=== PATIENT | male | born 1990 | race Caucasian/White ===

== ENCOUNTER 2021-12-30 16:08 | Emergency (ER) | payer SELFPAY ==
[2021-12-30] MEDS ORDERED: DICYCLOMINE HCL 20 MG/2 ML AMP IM ONE (16:22)
[2021-12-30] MEDS ORDERED: ONDANSETRON 4 MG/2 ML VIAL ONE (16:22)
[2021-12-30] MEDS ORDERED: PANTOPRAZOLE 40 MG INJ ONE (16:23)
[2021-12-30 16:26] LABS: Absolute Lymphocytes (CBC) 1.3 K/uL (0.7-4.9); Hematocrit 43.9 % (39.6-49.0); Lymphocytes % 9.6 % (15.3-44.8); MPV 7.8 fL (7.6-11.3); RBC Red Blood Cell Count 5.04 M/uL (4.33-5.43)
[2021-12-30 16:53] LABS: ALT/SGPT 34 U/L (12-78); AST/SGOT 18 U/L (15-37); Albumin 4.2 g/dL (3.4-5.0); Alkaline Phosphatase 75 U/L (45-117); BUN Blood Urea Nitrogen 20 mg/dL (7-18); Bicarbonate 29 mmol/L (21-32); Bilirubin Direct 0.1 mg/dL (0-0.2); Bilirubin Total 0.4 mg/dL (0.2-1.0); Glucose Level 124 mg/dL (74-106); Lipase 96 U/L (73-393); Potassium 3.2 mmol/L (3.5-5.1); Protein, Total 7.5 g/dL (6.4-8.2); Sodium Level 139 mmol/L (136-145)
[2021-12-30] MEDS ORDERED: MAGNES/ALUMIN/SIMET 30ML UCUP ONE (16:56)
[2021-12-30] MEDS ORDERED: LIDOCAINE VISCOUS 2% SOLN 15 ML UDC ONE (16:57)
[2021-12-30] MEDS ORDERED: FENTANYL CITR 100 MCG/2 ML ONE (17:53)
[2021-12-30] MEDS ORDERED: NA CHLORIDE 0.9% 1,000 ML ONE (17:53)
[2021-12-30] MEDS ORDERED: KCL 20 MEQ/100 mL IVPB 100 ML IV ONE (17:53)
--- NOTE | 2021-12-30 18:34 | RAD REPORT ---
EXAM DESCRIPTION: CTAbdomen Pelvis W Contrast - 12/30/2021 6:24 pm CLINICAL HISTORY: ABD PAIN COMPARISON: Abdomen Pelvis W Contrast dated 05/04/2017; CT ABD PELVIS W CONTRAST dated 06/16/2013; C T ABD PELVIS W CONTRAST dated 01/24/2013 TECHNIQUE: CT of the abdomen and pelvis was performed. All CT scans are performed using dose optimization technique as appropriate and may include automated exposure control or mA/KV adjustment according to patient size. FINDINGS: Lower chest: No acute abnormality. Liver: Nonspecific periportal edema. Biliary: Cholecystectomy. Stomach: No significant focal abnormality. Duodenum: No significant focal abnormality. Pancreas: No significant abnormality. Spleen: No significant abnormality. Adrenal: No suspicious lesions. Kidney/ureter: No hydronephrosis. No renal calculi. Too small to characterize and/or benign appearing renal lesions are noted. Retroperitoneum: No retroperitoneal adenopathy. Vascular: No aneurysm. Bowel: No significant focal abnormality. Normal appendix Peritoneum: No ascites or free air. Bladder: Grossly unremarkable. Reproductive: No adnexal masses. Bones: No acute fracture. Other: n/a IMPRESSION: No acute intra-abdominal or pelvic finding. Normal appendix .
[2021-12-30] MEDS ORDERED: KETOROLAC 30 MG/ML INJ ONE (18:38)
--- NOTE | 2021-12-30 18:39 | EDPHYS ---
Physician Documentation [facility] Name: Roni Cameron Age: 31 yrs Sex: Male : 1990 Arrival Date: 12/30/2021 Time: 16:10 Bed 8 Private MD: ED Physician Chan Damon HPI: 12/30 17:06 This 31 yrs old Male presents to ER via EMS with complaints of Abdominal Pain. jr8 17:06 The patient presents with abdominal pain in the epigastric area. Onset: The jr8 symptoms/episode began/occurred acutely, today. The symptoms do not radiate. Associated signs and symptoms: Pertinent positives: nausea and vomiting. The symptoms are described as stabbing. Modifying factors: The symptoms are alleviated by nothing, the symptoms are aggravated by nothing. Severity of pain: At its worst the pain was moderate in the emergency department the pain is unchanged. The patient has experienced similar episodes in the past, a few times. The patient has not recently seen a physician. Stated that he use to have this when he smoked synthetic. Also with history of gastritis. Currently on no meds . Historical: - Allergies: 16:19 Ceclor; ke1 - PMHx: 16:19 Bipolar disorder; GERD; gastritis; Schizophrenia; ke1 - Immunization history:: Client reports having NOT received the Covid vaccine. - Social history:: Smoking status: Patient reports the use of cigarette tobacco products. ROS: 17:06 Eyes: Negative for injury, pain, redness, and discharge, ENT: Negative for injury, jr8 pain, and discharge, Neck: Negative for injury, pain, and swelling, Cardiovascular: Negative for chest pain, palpitations, and edema, Respiratory: Negative for shortness of breath, cough, wheezing, and pleuritic chest pain, Back: Negative for injury and pain, MS/Extremity: Negative for injury and deformity, Skin: Negative for injury, rash, and discoloration, Neuro: Negative for headache, weakness, numbness, tingling, and seizure. 17:06 Abdomen/GI: Positive for abdominal pain, nausea and vomiting, Negative for diarrhea, hematemesis, rectal bleeding. Exam: 17:06 Cardiovascular: Regular rate and rhythm with a normal S1 and S2. No gallops, murmurs, jr8 or rubs. Normal PMI, no JVD. No pulse deficits. Respiratory: Lungs have equal breath sounds bilaterally, clear to auscultation and percussion. No rales, rhonchi or wheezes noted. No increased work of breathing, no retractions or nasal flaring. Back: No spinal tenderness. No costovertebral tenderness. Full range of motion. Skin: Warm, dry with normal turgor. Normal color with no rashes, no lesions, and no evidence of cellulitis. MS/ Extremity: Pulses equal, no cyanosis. Neurovascular intact. Full, normal range of motion. Neuro: Awake and alert, GCS 15, oriented to person, place, time, and situation. Cranial nerves II-XII grossly intact. Motor strength 5/5 in all extremities. Sensory grossly intact. 17:06 Constitutional: The patient appears alert, awake, anxious. 17:06 Abdomen/GI: Inspection: abdomen appears normal, Bowel sounds: active, all quadrants, Palpation: soft, in all quadrants, moderate abdominal tenderness, in the epigastric area, mass, is not appreciated, rebound tenderness, is not appreciated, voluntary guarding, is not appreciated, involuntary guarding, is not appreciated, no appreciated organomegaly, Indicators: McBurney's point is not tender, Meza's sign is negative, Rovsing's sign is negative. Vital Signs: 16:11 BP 125 / 73; Pulse 51; Resp 19; Temp 97.5; Pulse Ox 99% on R/A; Weight 72.57 kg; Height ke1 5 ft. 99 in. (403.86 cm); Pain 9/10; 17:30 BP 115 / 84; Pulse 45; Resp 12; Pulse Ox 100% ; vg1 16:11 Body Mass Index 4.45 (72.57 kg, 403.86 cm) ke1 MDM: 16:10 Patient medically screened. [email or web address] 17:06 Data reviewed: vital signs, nurses notes, lab test result(s), and as a result, I will [facility] [email or web address] discharge patient. Data interpreted: Pulse oximetry: on room air is 99 %. Interpretation: normal. 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 17:32 ED course: Patient still complaining of significant upper abdominal pain. Will CT his jr8 abdomen to ensure no surgical emergency is present . 18:01 Response to treatment: the patient's symptoms have mildly improved after treatment. ED jr8 course: Discussed with patient that he needs to f/u with gastroenterology for further evaluation . 12/30 16:11 Order name: Basic Metabolic Panel; Complete Time: 16:56 8 12/30 16:11 Order name: CBC with Diff; Complete Time: 16:29 8 12/30 16:11 Order name: Hepatic Function; Complete Time: 16:56 8 12/30 16:11 Order name: Lipase; Complete Time: 16:56 8 12/30 17:32 Order name: CT Abd/Pelvis - IV Contrast Only; Complete Time: 18:37 8 12/30 16:11 Order name: IV Saline Lock; Complete Time: 16:17 8 12/30 16:11 Order name: Labs collected and sent; Complete Time: 16:17 jr8 Administered Medications: 16:22 Drug: Zofran (Ondansetron) 4 mg Route: IVP; Site: right antecubital; vg1 17:30 Follow up: Response: No adverse reaction; Marked relief of symptoms vg1 16:24 Drug: ProTONIX (pantoprazole) 40 mg Route: IVP; Site: right antecubital; vg1 17:30 Follow up: Response: No adverse reaction; No change in condition vg1 16:29 Drug: Dicyclomine 20 mg Route: IM; Site: left deltoid; ke1 17:30 Follow up: Response: No adverse reaction; No change in condition vg1 16:59 Drug: GI Cocktail without - (Maalox Suspension 30 ml, Lidocaine Liquid 2 % 15 ke1 ml) Route: PO; 17:58 Follow up: Response: No adverse reaction; No change in condition vg1 17:45 Drug: NS 0.9% 1000 ml Route: IV; Rate: 1000 ml; Site: right antecubital; vg1 17:46 Drug: fentaNYL (PF) 50 mcg Route: IVP; Site: right antecubital; vg1 17:48 Drug: Potassium Chloride 20 mEq Route: IV; Rate: calculated rate; Site: right vg1 antecubital; 18:39 Drug: Ketorolac 15 mg Route: IVP; Site: right antecubital; ke1 Disposition Summary: 12/30/21 18:38 Discharge Ordered Location: Home kb Problem: new kb Symptoms: have improved kb Condition: Stable kb Diagnosis - Epigastric pain kb - Acute gastritis kb Followup: jr8 - With: - When: 2 - 3 days - Reason: Recheck today's complaints, Continuance of care, Re-evaluation by your physician Discharge Instructions: - Discharge Summary Sheet jr8 - Abdominal Pain, Adult jr8 - Gastritis, Adult jr8 - Peptic Ulcer jr8 Forms: - Medication Reconciliation Form kb - Thank You Letter kb - Antibiotic Education kb - Prescription Opioid Use kb Prescriptions: - omeprazole 40 mg Oral capsule,delayed release(DR/EC) - take 1 capsule by ORAL route once daily before a meal; 30 capsule; Refills: 0, jr8 Product Selection Permitted Signatures: Dispatcher [employer] Malika Bai, TYRON-C [employer]PA[employer] CARMAN-Cesar Glaser PA PA jr8 Araceli Baldwin RN RN vg1 Aaron Dinh RN RN ke1
--- NOTE | 2021-12-30 18:39 | ER ---
Nurse's Notes [facility] Name: Roni Cameron Age: 31 yrs Sex: Male : 1990 Arrival Date: 12/30/2021 Time: 16:10 Bed 8 Private MD: Diagnosis: Epigastric pain;Acute gastritis Presentation: 12/30 16:11 Chief complaint: Patient states: Abdominal pain N/V reported by patient to EMS , not ke1 very cooperative so EMS couldn't get elaborate report from patient, patient cursing all the way to the hospital. On arrival 125/73 18 99% on RA , bradycardic 51. Coronavirus screen: Vaccine status: Patient reports being unvaccinated. Ebola Screen: No symptoms or risks identified at this time. Initial Sepsis Screen: Does the patient meet any 2 criteria? No. Patient's initial sepsis screen is negative. Does the patient have a suspected source of infection? No. Patient's initial sepsis screen is negative. Risk Assessment: Do you want to hurt yourself or someone else? Patient reports no desire to harm self or others. Onset of symptoms was November 29, 2021. 16:11 Method Of Arrival: EMS: [facility] ke1 16:11 Acuity: EMILY 3 ke1 Triage Assessment: 16:25 General: Appears uncomfortable, Behavior is agitated, fussy, inappropriate for age, ke1 restless. Pain: Complains of pain in abdomen Pain does not radiate. Pain currently is 9 out of 10 on a pain scale. Neuro: Level of Consciousness is awake, alert, Oriented to person, place, time, situation. Cardiovascular: Heart tones S1 S2 Capillary refill < 3 seconds Patient's skin is warm and dry. Pulses are all present. Edema is absent. Respiratory: Airway Breath sounds are clear bilaterally. GI: Abdomen is flat, Abd is soft Abdomen is tender to palpation X 4 quads. : No deficits noted. Derm: No deficits noted. Musculoskeletal: No deficits noted. Historical: - Allergies: 16:19 Ceclor; ke1 - PMHx: 16:19 Bipolar disorder; GERD; gastritis; Schizophrenia; ke1 - Immunization history:: Client reports having NOT received the Covid vaccine. - Social history:: Smoking status: Patient reports the use of cigarette tobacco products. Screenin:31 Abuse screen: Denies threats or abuse. Nutritional screening: No deficits noted. ke1 Tuberculosis screening: No symptoms or risk factors identified. Fall Risk None identified. Assessment: 16:29 Reassessment: see triage note. ke1 17:58 Reassessment: Patient appears in no apparent distress at this time. No changes from vg1 previously documented assessment. Patient and/or family updated on plan of care and expected duration. Pain level reassessed. Patient is alert, oriented x 3, equal unlabored respirations, skin warm/dry/pink. 18:50 Reassessment: Patient appears in no apparent distress at this time. Patient and/or jd3 family updated on plan of care and expected duration. Pain level reassessed. Patient is alert, oriented x 3, equal unlabored respirations, skin warm/dry/pink. Vital Signs: 16:11 BP 125 / 73; Pulse 51; Resp 19; Temp 97.5; Pulse Ox 99% on R/A; Weight 72.57 kg; Height ke1 5 ft. 99 in. (403.86 cm); Pain 9/10; 17:30 BP 115 / 84; Pulse 45; Resp 12; Pulse Ox 100% ; vg1 16:11 Body Mass Index 4.45 (72.57 kg, 403.86 cm) ke1 ED Course: 16:10 Patient arrived in ED. vg1 16:10 Aaron Dinh, OLI is Primary Nurse. ke1 16:10 Cesar Bolivar PA is PHCP. jr8 16:10 Chan Damon MD is Attending Physician. jr8 16:17 Triage completed. ke1 16:32 Arm band placed on right wrist. ke1 18:02 PHCP role handed off by Cesar Bolivar PA kb 18:02 Malika Angela FNP-C is PHCP. kb 18:24 CT Abd/Pelvis - IV Contrast Only In Process Unspecified. EDMS 18:38 Cesar Bolivar PA is PHCP. kb 18:38 Glenn Mccoy MD is Referral Physician. kb 19:05 No provider procedures requiring assistance completed. IV discontinued, intact, jd3 bleeding controlled, No redness/swelling at site. Pressure dressing applied. 19:06 Patient has correct armband on for positive identification. Bed in low position. Call jd3 light in reach. Side rails up X 1. Pulse ox on. NIBP on. Administered Medications: 16:22 Drug: Zofran (Ondansetron) 4 mg Route: IVP; Site: right antecubital; vg1 17:30 Follow up: Response: No adverse reaction; Marked relief of symptoms vg1 16:24 Drug: ProTONIX (pantoprazole) 40 mg Route: IVP; Site: right antecubital; vg1 17:30 Follow up: Response: No adverse reaction; No change in condition vg1 16:29 Drug: Dicyclomine 20 mg Route: IM; Site: left deltoid; ke1 17:30 Follow up: Response: No adverse reaction; No change in condition vg1 16:59 Drug: GI Cocktail without - (Maalox Suspension 30 ml, Lidocaine Liquid 2 % 15 ke1 ml) Route: PO; 17:58 Follow up: Response: No adverse reaction; No change in condition vg1 17:45 Drug: NS 0.9% 1000 ml Route: IV; Rate: 1000 ml; Site: right antecubital; vg1 17:46 Drug: fentaNYL (PF) 50 mcg Route: IVP; Site: right antecubital; vg1 17:48 Drug: Potassium Chloride 20 mEq Route: IV; Rate: calculated rate; Site: right vg1 antecubital; 18:39 Drug: Ketorolac 15 mg Route: IVP; Site: right antecubital; ke1 Outcome: 18:38 Discharge ordered by . kb 19:05 Discharged to home ambulatory. jd3 19:05 Condition: stable 19:05 Discharge instructions given to patient, Instructed on discharge instructions, follow up and referral plans. Demonstrated understanding of instructions, follow-up care. 19:06 Patient left the ED. jd3 Signatures: Dispatcher [employer] EDMS Malika Angela FNP-C FNP-Cesar Glaser PA PA jr8 Arnulfo Mckeon RN RN jd3 Garcia, Victoria, RN RN vg1 Aaron Dinh RN RN ke1
[2021-12-30 19:34] VITALS: TEMP 97.5
[2021-12-30 19:35] VITALS: BP 115/84; O2SAT 100
== END 2021-12-30 19:06 | disposition home or self-care (01) ==
LOC: ER 16:08
DX: K29.00 Acute gastritis without bleeding (principal); Z72.0 Tobacco use; Z88.8 Allergy status to other drugs, medicaments and biological substances
CPT/HCPCS: 36415; 74177; 80048; 80076; 83690; 85025; 96372; 96374; 96375; 99284; C9113; J0500; J2405; J3010; J3480; J7030; Q9967

== ENCOUNTER 2022-03-09 01:45 | Emergency (ER) | payer SELFPAY ==
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
[2022-03-09 02:34] VITALS: BP 131/94; TEMP 98.5; O2SAT 97
== END 2022-03-09 02:27 | disposition home or self-care (01) ==
LOC: ER 01:45
DX: M26.601 Right temporomandibular joint disorder, unspecified (principal); R09.81 Nasal congestion; R06.02 Shortness of breath; L03.116 Cellulitis of left lower limb; F20.9 Schizophrenia, unspecified; Z88.1 Allergy status to other antibiotic agents
CPT/HCPCS: 99281

== ENCOUNTER 2022-09-05 09:32 | Emergency (ER) | payer SELFPAY ==
[2022-09-05] MEDS ORDERED: MAGNES/ALUMIN/SIMET 30ML UCUP ONE (09:54)
[2022-09-05] MEDS ORDERED: ONDANSETRON 4 MG/2 ML VIAL ONE (09:54)
[2022-09-05] MEDS ORDERED: NA CHLORIDE 0.9% 1,000 ML ONE (09:55)
[2022-09-05] MEDS ORDERED: FAMOTIDINE 20 MG/2 ML VIAL IV ONE (09:55)
[2022-09-05] MEDS ORDERED: LIDOCAINE VISCOUS 2% SOLN 15 ML UDC ONE (09:55)
[2022-09-05 10:12] LABS: Absolute Lymphocytes (CBC) 1.4 K/uL (0.7-4.9); Hematocrit 50.4 % (39.6-49.0); Lymphocytes % 6.9 % (15.3-44.8); MCV 87.7 fL (80-100); MPV 7.6 fL (7.6-11.3); RBC Red Blood Cell Count 5.75 M/uL (4.33-5.43)
[2022-09-05 10:22] LABS: Albumin 4.8 g/dL (3.4-5.0); Potassium 3.9 mmol/L (3.5-5.1); Protein, Total 8.8 g/dL (6.4-8.2)
--- NOTE | 2022-09-05 11:09 | RAD REPORT ---
EXAM DESCRIPTION: CT - Abdomen Pelvis W Contrast - 09/05/2022 10:55 am CLINICAL HISTORY: abd pain COMPARISON: Abdomen Pelvis W Contrast dated 12/30/2021 TECHNIQUE: Biphasic, helical CT imaging of the abdomen and pelvis was performed following 100 ml non -ionic IV contrast. Oral contrast: No. All CT scans are performed using dose optimization technique as appropriate and may include automated exposure control or mA/KV adjustment according to patient size. FINDINGS: No suspicious findings in the lung bases. The liver, spleen, and pancreas show no suspicious findings. Gallbladder is absent. No abnormal bilia ry tree dilatation. Symmetric renal function is seen with no hydronephrosis or suspicious renal mass. No pyelonephritis o r acute parenchymal process. No bladder abnormalities. No adrenal abnormalities. Distal esophagus shows no wall thickening or edema. No gastric wall thickening, mass or edema identif iable. Gastritis can be occult on CT imaging. A few mildly prominent small bowel loops are present. F luid is seen in the right-side of the colon. No colon wall thickening or mass. Hyperdensity within th e sigmoid and rectum is probably ingested medication. Bowel pattern is nonspecific. A nonspecific ent eritis is possible. No free air, free fluid or inflammatory stranding. No hernia, mass or bulky lymphadenopathy. No suspicious bony findings. IMPRESSION: Contrast enhanced CT abdomen and pelvis showing no acute or emergent finding. The bowel pattern is nonspecific. A mild enteritis cannot be excluded.
[2022-09-05 11:13] LABS: Blood Morphology Comment NOT SEEN (NOT SEEN); Platelet Estimate ADEQ; White Blood Cell Scan OK (OK)
[2022-09-05] MEDS ORDERED: DICYCLOMINE HCL 20 MG/2 ML AMP IM ONE (11:22)
[2022-09-05] MEDS ORDERED: PROMETHAZINE INJ 25 MG/ML AMP ONE (11:22)
--- NOTE | 2022-09-05 12:25 | EDPHYS ---
Physician Documentation [facility] Name: Roni Cameron Age: 32 yrs Sex: Male : 1990 Arrival Date: 09/05/2022 Time: 09:33 Bed 19 Private MD: ED Physician Edward Fair HPI: 09/05 09:57 This 32 yrs old Male presents to ER via Ambulatory with complaints of Abdominal Pain. kb 09:57 The patient presents with abdominal pain in the upper abdomen. Onset: The kb symptoms/episode began/occurred yesterday. The symptoms do not radiate. Associated signs and symptoms: Pertinent positives: nausea, vomiting, and diarrhea, Pertinent negatives: fever. The symptoms are described as burning. Modifying factors: The symptoms are alleviated by nothing, the symptoms are aggravated by nothing. Severity of pain: At its worst the pain was moderate in the emergency department the pain is unchanged. The patient has experienced similar episodes in the past, a few times. The patient has been recently seen by a physician: the ER physician, out of Town, yesterday. Pt reports n/v/d and upper abd pain since yesterday. Was seen at [place] [facility] and diagnosed with gastritis after normal CT and labs. States symptoms have continued. Pt has had this in the past. Pt states he smokes marijuana daily. Historical: - Allergies: 09:45 Ceclor; aa5 - Home Meds: 09:45 Geodon Oral [Active]; Seroquel Oral [Active]; aa5 - PMHx: 09:45 Bipolar disorder; gastritis; GERD; PTSD; Schizophrenia; aa5 - PSHx: 09:45 Cholecystectomy; aa5 - Immunization history:: Adult Immunizations unknown. - Social history:: Patient uses street drugs, marijuana. ROS: 09:59 Constitutional: Negative for fever, chills, and weight loss. kb 09:59 Abdomen/GI: Positive for abdominal pain, nausea, vomiting, and diarrhea. 09:59 All other systems are negative. Exam: 09:59 Head/Face: Normocephalic, atraumatic. ENT: Moist Mucous membranes Cardiovascular: kb Regular rate and rhythm with a normal S1 and S2. No gallops, murmurs, or rubs. No pulse deficits. Respiratory: Respirations even and unlabored. No increased work of breathing. Talking in full sentences Abdomen/GI: Soft, non-tender. No distention Skin: Warm, dry with normal turgor. Normal color. MS/ Extremity: Pulses equal, no cyanosis. Neurovascular intact. Full, normal range of motion. Neuro: Awake and alert, GCS 15, oriented to person, place, time, and situation. Moves all extremities. Normal gait. Psych: Awake, alert, with orientation to person, place and time. Behavior, mood, and affect are within normal limits. 09:59 Constitutional: The patient appears alert, awake, uncomfortable. Vital Signs: 09:42 BP 162 / 107; Pulse 60; Resp 16 S; Temp 97.6(O); Pulse Ox 99% on R/A; Weight 72.57 kg aa5 (R); Height 5 ft. 8 in. (172.72 cm) (R); Pain 10/10; 10:05 BP 153 / 81; Pulse 74; Resp 22; Pulse Ox 100% on R/A; Pain 10/10; mb8 10:26 BP 153 / 81; Pulse 53; Resp 16; Pulse Ox 98% on R/A; Pain 5/10; mb8 11:34 BP 117 / 72; Pulse 70; Resp 20; Pulse Ox 99% on R/A; Pain 8/10; mb8 09:42 Body Mass Index 24.33 (72.57 kg, 172.72 cm) aa5 10:26 Patient resting at this time mb8 MDM: 09:42 Patient medically screened. kb 09:57 Data reviewed: vital signs, nurses notes. Data interpreted: Pulse oximetry: on room air kb is 99 %. Interpretation: normal. 11:47 Counseling: I had a detailed discussion with the patient and/or guardian regarding: the kb historical points, exam findings, and any diagnostic results supporting the discharge/admit diagnosis, lab results, radiology results, the need for outpatient follow up, a video and sound recorder, to return to the emergency department if symptoms worsen or persist or if there are any questions or concerns that arise at home. 09/05 09:43 Order name: CBC with Diff; Complete Time: 11:17 kb 09/05 09:43 Order name: CMP; Complete Time: 10:25 kb 09/05 09:43 Order name: Lipase; Complete Time: 10:25 kb 09/05 10:30 Order name: CT Abd/Pelvis - IV Contrast Only; Complete Time: 11:10 kb 09/05 11:14 Order name: CBC Smear Scan; Complete Time: 11:17 EDMS 09/05 09:43 Order name: IV Saline Lock; Complete Time: 09:55 kb 09/05 09:43 Order name: Labs collected and sent; Complete Time: 09:55 kb 09/05 11:12 Order name: PO challenge; Complete Time: 11:32 kb Administered Medications: 09:55 Drug: NS 0.9% 1000 ml Route: IV; Rate: 1 bolus; Site: left antecubital; mb8 10:33 Follow up: Response: No adverse reaction; IV Status: Completed infusion mb8 09:55 Drug: Pepcid (famotidine) 20 mg Route: IVP; Site: left antecubital; mb8 10:33 Follow up: Response: No adverse reaction; Pain is decreased mb8 09:58 Drug: Zofran (Ondansetron) 4 mg Route: IVP; Site: left antecubital; mb8 10:34 Follow up: Response: No adverse reaction; Nausea is decreased mb8 09:59 Drug: GI Cocktail without - (Maalox Suspension 30 ml, Lidocaine Liquid 2 % 15 mb8 ml) Route: PO; 10:33 Follow up: Response: No adverse reaction; Pain is decreased mb8 11:26 Drug: Phenergan (promethazine) 25 mg Route: IM; Site: left deltoid; mb8 12:29 Follow up: Response: Nausea is decreased mb8 11:26 Drug: Bentyl (dicyclomine) 20 mg Route: PO; mb8 12:29 Follow up: Response: Pain is decreased mb8 Disposition: 09:59 Co-signature as Attending Physician, Edward PEDERSEN was immediately available on-site ms3 in the Emergency Department for consultation in the care of the patient. Disposition Summary: 09/05/22 12:23 Discharge Ordered Location: Home Condition: Stable kb Diagnosis - Nausea with vomiting, unspecified kb - Upper abdominal pain, unspecified kb Followup: kb - With: Emergency Department - When: As needed - Reason: Worsening of condition Followup: kb - With: Private Physician - When: 2 - 3 days - Reason: Recheck today's complaints, Continuance of care, Re-evaluation by your physician Discharge Instructions: - Discharge Summary Sheet kb - Gastritis, Adult, [id number] kb Forms: - Medication Reconciliation Form kb - Thank You Letter kb - Antibiotic Education kb - Prescription Opioid Use kb Prescriptions: - Zofran 4 mg Oral Tablet - take 1 tablet by ORAL route every 6 hours As needed; 20 tablet; Refills: 0, kb Product Selection Permitted - dicyclomine 20 mg Oral Tablet - take 1 tablet by ORAL route 4 times per day As needed; 20 tablet; Refills: 0, kb Product Selection Permitted Signatures: Dispatcher [employer] EDMS Malika Angela, DRAFTER ASSISTANT-C DRAFTER ASSISTANT-Brianb Jeannie Cedeno, RN RN aa5 Edward Fair DO DO ms3 Carlyle Bae, RN RN mb8
--- NOTE | 2022-09-05 12:25 | ER ---
Nurse's Notes [facility] Name: Roni Cameron Age: 32 yrs Sex: Male : 1990 Arrival Date: 09/05/2022 Time: 09:33 Bed 19 Private MD: Diagnosis: Nausea with vomiting, unspecified;Upper abdominal pain, unspecified Presentation: 09/05 09:42 Chief complaint: Patient states: abd pain, nausea, vomiting, diarrhea since yesterday. [facility] Pt reports being seen at [facility] yesterday. Pt states "I got acid reflux and gastritis since yesterday". 09:42 Coronavirus screen: diarrhea, nausea, vomiting. Ebola Screen: Patient denies travel to [facility] an Ebola-affected area in the 21 days before illness onset. Initial Sepsis Screen: Does the patient meet any 2 criteria? No. Patient's initial sepsis screen is negative. Does the patient have a suspected source of infection? No. Patient's initial sepsis screen is negative. Risk Assessment: Do you want to hurt yourself or someone else? Patient reports no desire to harm self or others. Onset of symptoms was September 04, 2022. 09:42 Method Of Arrival: Ambulatory [facility] 09:42 Acuity: EMILY 3 aa5 Triage Assessment: 09:50 General: Appears uncomfortable, Behavior is cooperative, restless. mb8 Historical: - Allergies: 09:45 Ceclor; aa5 - Home Meds: 09:45 Geodon Oral [Active]; Seroquel Oral [Active]; aa5 - PMHx: 09:45 Bipolar disorder; gastritis; GERD; PTSD; Schizophrenia; aa5 - PSHx: 09:45 Cholecystectomy; aa5 - Immunization history:: Adult Immunizations unknown. - Social history:: Patient uses street drugs, marijuana. Screenin:02 Abuse screen: Denies threats or abuse. Denies injuries from another. Nutritional mb8 screening: No deficits noted. Tuberculosis screening: No symptoms or risk factors identified. Fall Risk None identified. Assessment: 09:50 Pain: Complains of pain in abdomen Pain does not radiate. Pain currently is 10 out of mb8 10 on a pain scale. Quality of pain is described as burning. GI: Abdomen is flat, non-distended, Bowel sounds present X 4 quads. Abd is soft Patient c/o abdominal pain for several days. Was seen at a different ER and they sent him home with prescriptions. Patient did not get those filled because of not being able to afford the medication. 10:26 Reassessment: Patient and/or family updated on plan of care and expected duration. Pain mb8 level reassessed. Patient sleeping at this time. 12:29 Reassessment: PO challenge with water successful. No vomiting. mb8 Vital Signs: 09:42 BP 162 / 107; Pulse 60; Resp 16 S; Temp 97.6(O); Pulse Ox 99% on R/A; Weight 72.57 kg aa5 (R); Height 5 ft. 8 in. (172.72 cm) (R); Pain 10/10; 10:05 BP 153 / 81; Pulse 74; Resp 22; Pulse Ox 100% on R/A; Pain 10/10; mb8 10:26 BP 153 / 81; Pulse 53; Resp 16; Pulse Ox 98% on R/A; Pain 5/10; mb8 11:34 BP 117 / 72; Pulse 70; Resp 20; Pulse Ox 99% on R/A; Pain 8/10; mb8 09:42 Body Mass Index 24.33 (72.57 kg, 172.72 cm) aa5 10:26 Patient resting at this time mb8 ED Course: 09:33 Patient arrived in ED. as 09:39 Malika Angela FNP-C is PHCP. kb 09:39 Edward Fair DO is Attending Physician. kb 09:41 Arm band placed on Patient placed in an exam room, on a stretcher. aa5 09:47 Triage completed. aa5 09:49 Carlyle Bae, OLI is Primary Nurse. mb8 09:50 Patient has correct armband on for positive identification. Placed in gown. Bed in low mb8 position. Call light in reach. Side rails up X2. Client placed on continuous cardiac and pulse oximetry monitoring. NIBP monitoring applied. 09:55 Inserted saline lock: 20 gauge in left antecubital area, using aseptic technique. Blood mb9 collected. 09:55 CBC with Diff Sent. mb9 09:55 CMP Sent. mb9 09:55 Lipase Sent. mb9 10:03 No provider procedures requiring assistance completed. mb8 10:[address] via wheelchair. mb8 10:57 CT Abd/Pelvis - IV Contrast Only In Process Unspecified. EDMS 10:[address] from [address]. mb8 12:25 IV discontinued, intact, bleeding controlled, No redness/swelling at site. Pressure mb8 dressing applied. Administered Medications: 09:55 Drug: NS 0.9% 1000 ml Route: IV; Rate: 1 bolus; Site: left antecubital; mb8 10:33 Follow up: Response: No adverse reaction; IV Status: Completed infusion mb8 09:55 Drug: Pepcid (famotidine) 20 mg Route: IVP; Site: left antecubital; mb8 10:33 Follow up: Response: No adverse reaction; Pain is decreased mb8 09:58 Drug: Zofran (Ondansetron) 4 mg Route: IVP; Site: left antecubital; mb8 10:34 Follow up: Response: No adverse reaction; Nausea is decreased mb8 09:59 Drug: GI Cocktail without - (Maalox Suspension 30 ml, Lidocaine Liquid 2 % 15 mb8 ml) Route: PO; 10:33 Follow up: Response: No adverse reaction; Pain is decreased mb8 11:26 Drug: Phenergan (promethazine) 25 mg Route: IM; Site: left deltoid; mb8 12:29 Follow up: Response: Nausea is decreased mb8 11:26 Drug: Bentyl (dicyclomine) 20 mg Route: PO; mb8 12:29 Follow up: Response: Pain is decreased mb8 Medication: 10:03 VIS not applicable for this client. mb8 Outcome: 12:23 Discharge ordered by MD. hewitt 12:30 Discharged to home ambulatory. mb8 12:30 Condition: stable 12:30 Discharge instructions given to patient, Instructed on discharge instructions, follow up and referral plans. Demonstrated understanding of instructions, follow-up care, Prescriptions given X 2. 12:31 Patient left the ED. mb8 Signatures: Dispatcher [employer] EDMS Malika Angela, MANJULA ACKERMAN-Michelle Paige Audri RN RN aa5 Carlyle Bae RN RN mb8 Emmie Nielsen RN RN mb9 Corrections: (The following items were deleted from the chart) 10:34 10:26 BP 153 / 81; Pulse 53bpm; Resp 16bpm; Pulse Ox 98% RA; Patient sleeping at this mb8 time; mb8
[2022-09-05 12:36] VITALS: TEMP 97.6
[2022-09-05 12:40] VITALS: BP 117/72; O2SAT 99
== END 2022-09-05 12:31 | disposition home or self-care (01) ==
LOC: ER 09:32
DX: R10.10 Upper abdominal pain, unspecified (principal); R11.2 Nausea with vomiting, unspecified; R19.7 Diarrhea, unspecified; Z88.1 Allergy status to other antibiotic agents
CPT/HCPCS: 36415; 74177; 80053; 83690; 85025; 96361; 96372; 96374; 96375; 99284; J0500; J2405; J2550; J7030; Q9967

== ENCOUNTER 2022-10-11 10:15 | Emergency (ER) | payer SELFPAY ==
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
[2022-10-11] MEDS ORDERED: FLUORESCEIN SODIUM 1 MG/WRAP ONE (10:47)
[2022-10-11] MEDS ORDERED: TETRACAINE HCL 0.5% 4ML OPTH ONE (10:47)
--- NOTE | 2022-10-11 11:35 | ER ---
Nurse's Notes [facility] Name: Roni Cameron Age: 32 yrs Sex: Male : 1990 Arrival Date: 10/11/2022 Time: 10:19 Bed 11 Private MD: Diagnosis: Foreign body in cornea, right eye Presentation: 10/11 10:29 Chief complaint: Patient states: about a week ago was grinding metal and the irritation vg1 has become worse over the week. Denies blurred vision. Coronavirus screen: Vaccine status: Patient reports being unvaccinated. Client denies travel out of the [place] in the last 14 days. Ebola Screen: Patient negative for fever greater than or equal to 101.5 degrees Fahrenheit, and additional compatible Ebola Virus Disease symptoms. Initial Sepsis Screen: Does the patient meet any 2 criteria? No. Patient's initial sepsis screen is negative. Does the patient have a suspected source of infection? No. Patient's initial sepsis screen is negative. Risk Assessment: Do you want to hurt yourself or someone else? Patient reports no desire to harm self or others. Onset of symptoms was October 04, 2022. 10:29 Method Of Arrival: Ambulatory vg1 10:29 Acuity: EMILY 4 vg1 Triage Assessment: 10:31 General: Appears uncomfortable, Behavior is cooperative. Pain: Complains of pain in vg1 right eye Pain currently is 6 out of 10 on a pain scale. EENT: Eyes are tearing on right eye and redness . Historical: - Allergies: 10:31 Ceclor; vg1 - Home Meds: 10:31 Seroquel Oral [Active]; vg1 - PMHx: 10:31 Bipolar disorder; gastritis; GERD; PTSD; Schizophrenia; vg1 - PSHx: 10:31 Cholecystectomy; vg1 - Immunization history:: Client reports having NOT received the Covid vaccine. - Social history:: Smoking status: Patient denies any tobacco usage or history of. Screenin:31 Abuse screen: Denies threats or abuse. Denies injuries from another. Nutritional ld1 screening: No deficits noted. Tuberculosis screening: No symptoms or risk factors identified. Fall Risk None identified. Assessment: 11:31 Reassessment: See triage assessment. ld1 Vital Signs: 10:29 BP 146 / 93; Pulse 90; Resp 15; Temp 98.0; Pulse Ox 98% ; Weight 72.57 kg; Height 5 ft. vg1 9 in. (175.26 cm); Pain 6/10; 11:32 BP 136 / 90; Pulse 86; Resp 15; Pulse Ox 99% on R/A; ld1 10:29 Body Mass Index 23.63 (72.57 kg, 175.26 cm) vg1 ED Course: 10:19 Patient arrived in ED. rg4 10:19 Clive Cruz PA is PHCP. [facility] 10:19 Shahab Levy MD is Attending Physician. [facility] 10:31 Triage completed. vg1 10:31 Arm band placed on. vg1 10:45 Linda Mckeon, RN is Primary Nurse. ld1 11:31 Patient has correct armband on for positive identification. Bed in low position. Call ld1 light in reach. Side rails up X2. Pulse ox on. NIBP on. Door closed. Noise minimized. 11:31 Assist provider with eye exam using fluorescein stain, Performed by Clive FELIX ld1 Patient tolerated well. Patient did not have IV access during this emergency room visit. 11:34 Jose Boudreaux MD is Referral Physician. [facility] Administered Medications: 11:33 Drug: Tetracaine Drops 0.5 % 1 drops Route: Ophthalmic; Site: right eye; ld1 11:36 Drug: Tobramycin Ointment (0.3 %) 1 application Route: Ophthalmic; Site: right eye; ld1 Medication: 11:31 VIS not applicable for this client. ld1 Outcome: 11:35 Discharge ordered by . [facility] 11:43 Discharged to home ambulatory. ld1 11:43 Condition: stable 11:43 Discharge instructions given to patient, Instructed on discharge instructions, follow up and referral plans. medication usage, Demonstrated understanding of instructions, follow-up care, medications, Prescriptions given X 1. 11:43 Patient left the ED. ld1 Signatures: Clive Cruz PA PA jmm Garcia, Rubi rg4 Araceli Baldwin RN RN vg1 Linda Mckeon, OLI RN ld1
--- NOTE | 2022-10-11 11:35 | EDPHYS ---
Physician Documentation [facility] Name: Roni Cameron Age: 32 yrs Sex: Male : 1990 Arrival Date: 10/11/2022 Time: 10:19 Bed 11 Private MD: ED Physician Shahab Levy HPI: 10/11 10:33 This 32 yrs old Male presents to ER via Ambulatory with complaints of Foreign Body In [facility] Eye. 10:33 The patient sustained. Onset: The symptoms/episode began/occurred acutely, 1 week(s) jmm ago. This is a 32-year-old male with history of bipolar, schizophrenia the presents emerged department with eye discomfort beginning approximately a week ago. Patient states that he had a metal foreign body from grinding metal. Denies any visual issues. Denies fever.. Historical: - Allergies: 10:31 Ceclor; vg1 - Home Meds: 10:31 Seroquel Oral [Active]; vg1 - PMHx: 10:31 Bipolar disorder; gastritis; GERD; PTSD; Schizophrenia; vg1 - PSHx: 10:31 Cholecystectomy; vg1 - Immunization history:: Client reports having NOT received the Covid vaccine. - Social history:: Smoking status: Patient denies any tobacco usage or history of. ROS: 10:33 Constitutional: Negative for fever, chills, and weight loss. jmm 10:33 Eyes: Positive for injury or acute deformity. 10:33 All other systems are negative. Exam: 10:33 Constitutional: This is a well developed, well nourished patient who is awake, alert, jmm and in no acute distress. Head/Face: atraumatic. 10:33 Neck: Trachea midline, Supple Chest/axilla: Normal chest wall appearance and motion. Cardiovascular: Regular rate and rhythm. No edema appreciated Respiratory: Normal respirations, no respiratory distress appreciated Abdomen/GI: Non distended Back: Normal ROM Skin: General appearance color normal MS/ Extremity: Moves all extremities, no obvious deformities appreciated, no edema noted to the lower extremities Neuro: Awake and alert Psych: Behavior is normal, Mood is normal, Patient is cooperative and pleasant 10:33 Eyes: Conjunctiva: injected, in the right eye, Corneas: are normal, Sclera: Dye uptake appreciated to the border of the sclera and cornea at the 3 o'clock position. Vital Signs: 10:29 BP 146 / 93; Pulse 90; Resp 15; Temp 98.0; Pulse Ox 98% ; Weight 72.57 kg; Height 5 ft. vg1 9 in. (175.26 cm); Pain 6/10; 11:32 BP 136 / 90; Pulse 86; Resp 15; Pulse Ox 99% on R/A; ld1 10:29 Body Mass Index 23.63 (72.57 kg, 175.26 cm) vg1 MDM: 10:33 Patient medically screened. [facility] 11:33 Data reviewed: vital signs, nurses notes. Counseling: I had a detailed discussion with ramona the patient and/or guardian regarding: the historical points, exam findings, and any diagnostic results supporting the discharge/admit diagnosis, the need for outpatient follow up, to return to the emergency department if symptoms worsen or persist or if there are any questions or concerns that arise at home. 11:33 ED course: Unable to remove the foreign body. Will cover with ophthalmic antibiotics. ramona Due to the length of time the foreign body has been and is recommended that he follows up with ophthalmology for rust ring removal. Patient otherwise given strict return precautions. Patient understood agrees plan of care.. 10/11 10:34 Order name: Eye Tray; Complete Time: 10:47 [facility] 10/11 10:34 Order name: Fluoresene Opth strip; Complete Time: 10:47 [facility] Administered Medications: 11:33 Drug: Tetracaine Drops 0.5 % 1 drops Route: Ophthalmic; Site: right eye; ld1 11:36 Drug: Tobramycin Ointment (0.3 %) 1 application Route: Ophthalmic; Site: right eye; ld1 Disposition: 18:40 Co-signature as Attending Physician, Shahab Levy MD. rn Disposition Summary: 10/11/22 11:35 Discharge Ordered Location: Home [facility] Condition: Stable [facility] Diagnosis - Foreign body in cornea, right eye [facility] Followup: [facility] - With: Jose Boudreaux MD - When: Upon discharge from the Emergency Department - Reason: Recheck today's complaints, Continuance of care, Re-evaluation by your physician Discharge Instructions: - Discharge Summary Sheet [facility] - Eye Foreign Body [facility] Forms: - Medication Reconciliation Form [facility] - Thank You Letter [facility] - Antibiotic Education jmm - Prescription Opioid Use jmm Prescriptions: - Erythromycin 5 mg/gram (0.5 %) Ophthalmic Ointment - apply 1 centimeter by OPHTHALMIC route 2-3 times daily for 7 days; 1 tube; jmm Refills: 0, Product Selection Permitted Signatures: Clive Cruz PA PA jmm Nieto, Roman, MD MD rn Araceli Baldwin RN RN vg1 Linda Mckeon RN RN ld1
[2022-10-11] MEDS ORDERED: TOBRAMYCIN SULF 0.3% OPTH OINT ONE (11:37)
[2022-10-11 15:18] VITALS: TEMP 98
[2022-10-11 15:19] VITALS: BP 136/90; O2SAT 99
== END 2022-10-11 11:43 | disposition home or self-care (01) ==
LOC: ER 10:15
DX: T15.01XA Foreign body in cornea, right eye, initial encounter (principal); Z88.1 Allergy status to other antibiotic agents
CPT/HCPCS: 99284

== ENCOUNTER 2024-07-15 14:02 | Emergency (ER) | payer SELFPAY ==
--- OUTSIDE RECORDS SUMMARY | 2024-07-15 14:06 | XMS REPORT | Continuity of Care Document ---
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 normal/abnormal. BUN/Creatinine Ratio (test code = BCRATIO) 14 ratio 10-20 N Glucose (test code = GLU) 82 mg/dL 74-106 N Osmolality,Calculated (test code = OSMOC) 285.9 Calcium (test code = CA) 8.7 mg/dL 8.3-10.6 N Bilirubin,Total (test code = BILIT) 0.9 mg/dL 0.2-1.1 N Aspartate Amino Transferase (test code = AST) 23 U/L 0-34 N Alanine Aminotransferase (test code = ALT) 24 U/L 10-49 N Total Protein (test code = TP) 6.9 g/dL 5.7-8.2 N Albumin Level (test code = ALB) 4.5 g/dL 3.2-4.8 N Globulin (test code = GLOB) 2.4 mg/dL 2.3-3.5 N Albumin/Globulin Ratio (test code = AGRATIO) 1.9 ratio 0.8-2.0 N Alkaline Phosphatase (test code = ALP) 77 U/L 46-116 N Ethanol [id number] 14:51:00* Test Item Value Reference Range Interpretation Comme nts Ethanol (test code = ETOH) 4 mg/dL The pharmacologi shanice response to blood alcohol levels mayvary from individual to individual. The fatal concentrationhas been reported to be >400mg/dL. BASIC METABOLIC PANEL (NA, K, CL, CO2, GLUCOSE, BUN, CREATININE, CA)2022-05-02 17:42:52* Test Item Value Reference Range Interpretation Comme nts NA (test code = 8944658046) 140 mmol/L 135-145 K (test code = 1497644607) 3.9 mmol/L 3.5-5.0 CL (test code = 0438907448) 107 mmol/L 98-108 CO2 TOTAL (test code = 4590227199) 26 mmol/L 23-31 AGAP (test code = 3920760972) 2-16 BUN (test code = 8760068584) 9 mg/dL 7-23 GLUCOSE (test code = 0440767262) 112 mg/dL 70-110 H CREATININE (test code = 4232715713) 0.78 mg/dL 0.60-1.25 CALCIUM (test code = 7648125684) 8.3 mg/dL 8.6-10.6 L eGFR (test code = 7407092380) mL/min/1.73m2 [place] (test code = HOUSTON) Association of Glomerular Filtration Rate (GFR) and Staging of Kidney Disease* + --+ --+ ------+| GFR (mL/min/1.73 m2) ?| With Kidney Damage ?| ?Without Kidney Damage+ --------+ --------+ +| ?>90 ?| ?Stage one ?| ? Normal ?+ ---+ ---+ -------+| ?60-89 ?| ?Stage two ?| ? Decreased GFR ? + --+ --+ ------+| ?30-59 ?| ?Stage three ?| ? Stage three ? + --+ --+ ------+| ?15-29 ?| ?Stage four ? | ? Stage four ?+ ---+ ---+ -------+| ?<15 (or dialysis) ? ?| ?Stage five ? | ? Stage five ?+ ---+ ---+ -------+ *Each stage assumes the associated GFR [...] imaging tests). Lab Interpretation (test code = 01106-6) [facility] (ALB,T.PRO,BILI T,BU/BC,ALT,AST,ALK PHOS)2022-05-02 17:42:32* Test Item Value Reference Range Interpretation Comme nts TOTAL BILI (test code = 5081661249) 0.7 mg/dL 0.1-1.1 BILI UNCON (test code = 2132817399) 0.6 mg/dL 0.1-1.1 BILI CONJ (test code = 0953418178) 0.0 mg/dL 0.0-0.3 T PROTEIN (test code = 7758005135) 6.3 g/dL 6.3-8.2 ALBUMIN (test code = 7964566543) 3.9 g/dL 3.5-5.0 ALK PHOS (test code = 7124523910) 84 U/L 34-122 ALTv (test code = 1742-6) 44 U/L 5-50 AST(SGOT) (test code = 7063146727) 49 U/L 13-40 H Lab Interpretation (test cod e = 94416-4) [facility]normal [facility] [id number] 17:32:30* Test Item Value Reference Range Interpretation Comme nts WBC (test code = 6690-2) See_Comment [Automated [employer]] The system which generated this result transmitted reference range: 4.20 - 10.70 10*3/?L. The reference range was not used to interpret this result as normal/abnormal. RBC (test code = 789-8) See_Comment [Automated [employer]] The system which generated this result transmitted reference range: 4.26 - 5.52 10*6/?L. The reference range was not used to interpret this result as normal/abnormal. HGB (test code = 718-7) 13.5 g/dL 12.2-16.4 HCT (test code = 4544-3) 41.2 % 38.4-49.3 MCV (test code = 787-2) 90.5 fL 81.7-95.6 MCH (test code = 785-6) 29.7 pg 26.1-32.7 MCHC (test code = 786-4) 32.8 g/dL 31.2-35.0 RDW-SD (test code = 42480-9) 43.8 fL 38.5-51.6 RDW-CV (test code = 788-0) 13.2 % 12.1-15.4 PLT (test code = 777-3) See_Comment [Automated messa ge] The system which generated this result transmitted reference range: 150 - 328 10*3/?L. The reference range was not used to interpret this result as normal/abnormal. MPV (test code = 07052-0) 9.7 fL 9.8-13.0 L NRBC/100 WBC (test code = 6128286008) See_Comment [Automated [employer]] The system which generated this result transmitted reference range: 0.0 - 10.0 /100 WBCs. The reference range was not used to interpret this result as normal/abnormal. NRBC x10^3 (test code = 7636982364) <0.01 See_Comment [Automated messa ge] The system which generated this result transmitted reference range: 10*3/?L. The reference range was not used to interpret this result as normal/abnormal. GRAN MAT (NEUT) % (test code = 770-8) 64.3 % IMM GRAN % (test code = 3584153888) 0.50 % LYMPH % (test code = 736-9) 21.1 % MONO % (test code = 5905-5) 9.9 % EOS % (test code = 713-8) 3.3 % BASO % (test code = 706-2) 0.9 % GRAN MAT x10^3(ANC) (test code = 7535348857) 5.50 10*3/uL 1.99-6.95 IMM GRAN x10^3 (test code = 8705676106) 0.04 10*3/uL 0.00-0.06 LYMPH x10^3 (test code = 731-0) 1.80 10*3/uL 1.09-3.23 MONO x10^3 (test code = 742-7) 0.85 10*3/uL 0.36-1.02 EOS x10^3 (test code = 711-2) 0.28 10*3/uL 0.06-0.53 BASO x10^3 (test code = 704-7) 0.08 10*3/uL 0.01-0.09 Lab Interpretation (test code = 26176-0) Abnormal [facility] Notes Date/Time Note Provider Source 2024-05-30 18:41:18 Patient given discharge instructions on not taking medication as directed. Pt let ER ambulatory, no signs of distress. T [facility] 2024-05-30 17:48:40 Patient states: "I'm out of my psych meds. I've been out of them for a month. I missed my appt." Seroquel 400 mg QHS, Kyleigh Fritz RN [facility] 2024-05-29 23:21:08 Walked pt to bathroom to give urine sample and change into paper scrubs. Pt abruptly walked out of bathroom grabbed his belongings, yelled, "fuck this place" and walked out of ER. T [facility] 2024-05-29 22:59:06 Pt states he is schizophrenic and he is "losing his mind". "I think I am being poisoned." Pt takes Seroquel but hasn't taken it in a few weeks. Hear voices. States the voices are "harassing me" Pt states he wants to be admitted to psychiatric hospital. Pt isn't sure if he is suicidal. NO plan. Maria Eugenia Milner RN [facility] 2024-05-29 22:48:00 [facility] Emergency Department Note Patient Name: Diana Cameron Date of : 1990 33 year old male Treatment Room: [place] [address] Primary Care Physician: PATIENT DOES NOT HAVE A PCP Patient Escorted by: Self [9] Mode of Arrival: Personal means [1] EMS Treatment Prior to ED Arrival: BAG TESTER treatment: None Travel and Exposure Screening: Symptoms Does patient have any of these symptoms?: (not recorded) Exposure Screening Has patient had contact with someone with a communicable disease in the last month?: (not recorded) Diseases exposed to:: (not recorded) Is Patient ?: (not recorded) Exposure Date: (not recorded) Chief Complaint: Chief Complaint Patient presents with MENTAL ILLNESS History of Present Illness: The patient presents from home for evaluation for having thoughts of suicide. Denies having a plan. No homicidal ideation. He reports a history of bipolar disorder as well as schizoaffective disorder and has previously been on Seroquel but ran out several months ago. He complains of a slight headache. No injury or trauma. No chest pain or shortness of breath. No fevers or chills. No nausea or vomiting. He is also hearing voices. He reports he also possibly has a leak of his septic system at home and thinks he may have been covered in those fluids earlier today. He has since taken a shower he says. Here for evaluation. Past Medical History/Immunizations: Past Medical History: Diagnosis Date Bipolar disorder Insomnia Schizoaffective disorder Tetanus received in last 5 years: Unknown Childhood immunizations: Up-to-date Allergies: Allergies Allergen Reactions Amoxicillin Nausea and/or Vomiting Ceclor [Cefaclor] Hives Past Social History: Tobacco Use Every Day Smokeless Tobacco: Never used smokeless tobacco. Alcohol Use Yes. Comments: socially Drug Use Yes; Methamphetamines, Marijuana. Past Surgical History: Past Surgical History: Procedure Laterality Date CHOLECYSTECTOMY Review of Systems: Review of Systems Constitutional: Negative for chills and fever. Respiratory: Negative for cough and shortness of breath. Cardiovascular: Negative for chest pain. Gastrointestinal: Negative for abdominal pain. Genitourinary: Negative for dysuria. Musculoskeletal: Negative for arthralgias, neck pain and neck stiffness. Skin: Negative for wound. Neurological: Positive for headaches. Psychiatric/Behavioral: Positive for hallucinations and suicidal ideas. Negative for self-injury. Physical Exam: ED Triage Vitals [05/29/24 2303] Weight 74.8 kg (165 lb) Actual or estimated Estimated by patient/family report Height 1.753 m (5' 9") BP (!) 173/105 Pulse 96 Resp 18 Temp 36.8 ?C (98.2 ?F) Temp source Oral SpO2 98 % Measured on Room air Physical Exam Vitals and nursing note reviewed. Constitutional: Appearance: Normal appearance. HENT: Head: Normocephalic and atraumatic. Cardiovascular: Rate and Rhythm: Normal rate and regular rhythm. Pulses: Normal pulses. Pulmonary: Effort: Pulmonary effort is normal. No respiratory distress. Abdominal: General: There is no distension. Palpations: Abdomen is soft. Tenderness: There is no abdominal tenderness. Musculoskeletal: General: Normal range of motion. Cervical back: Neck supple. Skin: General: Skin is warm and dry. Neurological: General: No focal deficit present. Mental Status: He is alert and oriented to person, place, and time. Psychiatric: Attention and Perception: He perceives auditory hallucinations. Behavior: Behavior is agitated. Thought Content: Thought content is paranoid. Thought content does not include homicidal ideation. Radiology: No orders to display Lab Results: Lab Results - No data to display EKG: If EKG completed, see Procedure Note. Orders and Treatments: Orders Placed This Encounter Procedures CBC WITH DIFF COMP. METABOLIC PANEL (56693) URINE DRUG (IMMUNOASSAY) - COMPREHENSIVE DRUG SCREEN W/O REFLEX ETHANOL Acetaminophen Salicylate Influenza A B RSV COVID NAAT URINALYSIS No orders of the defined types were placed in this encounter. First Provider Eval: ED Events Date/Time Event User Comments 05/29/242256 Medical Screening Begins AURA SAUCEDO -- 05/29/242256 First Provider Evaluation AURA SAUCEDO -- ED COURSE Diagnosis/Impression as of 05/29/24 2323 Suicide ideation Procedures: Procedures MDM: Medical Decision Making The patient presents from home for evaluation for hearing voices as well as suicidal ideation. He denies having a plan of suicide. No homicidal ideation. He complains of slight headache but no chest pain or shortness of breath. No abdominal pain. No nausea or vomiting. He does have a history of bipolar disorder and has been on Seroquel in the past but reports he ran out several months ago. Vital signs are stable in ER. His abdomen is soft and nontender. He has no signs Rester distress. He has full range of motion of all extremities x 4. He is paranoid and agitated throughout the examination. The patient was taken back to the examination room where plans were to get the patient paper scrubs, check his urine as well as laboratory studies and screen the patient for COVID in preparation for medical clearance for evaluation by tino Bella. The patient became upset with this plan and chose to leave the emergency room. He did not sign AMA paperwork. Problems Addressed: Suicide ideation: acute illness or injury Amount and/or Complexity of Data Reviewed Labs: ordered. Flowsheet Documentation: Scoring Tools: No data recorded Disposition/Condition: ED Disposition ED Disposition AMA Condition Stable Comment -- Discharge Medications: Patient's Medications No medications on file Follow-up: Electronically signed by: Rehana Isaacs DO 05/29/242322 [facility] 2024-05-06 22:51:39 Pt called multiple times from by registration and radiology staff without answer. Pt LWBS. Pearl Gudino RN [facility] 2024-05-06 21:07:38 Patient arrived ambulatory c/o of wrist pain after a slip and fall today Vivian Mohamud RN [facility] 2024-05-06 21:00:00 [facility] Emergency Department Note Patient Name: Diana Cameron Date of : 1990 33 year old male Treatment Room: [facility] ED [facility] DANIELA/MIGDALIA Primary Care Physician: PATIENT DOES NOT HAVE A PCP Patient Escorted by: Self [9] Mode of Arrival: Personal means [1] EMS Treatment Prior to ED Arrival: Travel and Exposure Screening: Symptoms Does patient have any of these symptoms?: (not recorded) Exposure Screening Has patient had contact with someone with a communicable disease in the last month?: (not recorded) Diseases exposed to:: (not recorded) Is Patient ?: (not recorded) Exposure Date: (not recorded) Chief Complaint: Chief Complaint Patient presents with Wrist Pain Left History of Present Illness: This patient relates that he was at [facility] today at approximate 4:30 when he slipped and fell. The patient relates complaint of some left wrist discomfort. The patient does not relate severe swelling, numbness or weakness. There is no other areas of related to injury or discomfort. History provided by: Patient Past Medical History/Immunizations: Past Medical History: Diagnosis Date Bipolar disorder Insomnia Schizoaffective disorder Allergies: Allergies Allergen Reactions Amoxicillin Nausea and/or Vomiting Ceclor [Cefaclor] Hives Past Social History: Tobacco Use Every Day Smokeless Tobacco: Never used smokeless tobacco. Alcohol Use Yes. Comments: socially Drug Use Yes; Methamphetamines, Marijuana. Past Surgical History: Past Surgical History: Procedure Laterality Date CHOLECYSTECTOMY Review of Systems: Review of Systems Constitutional: Positive for activity change. Negative for fever. HENT: Negative for congestion, facial swelling and sore throat. Cardiovascular: Positive for chest pain. Gastrointestinal: Positive for abdominal pain. Genitourinary: Negative for hematuria. Musculoskeletal: Positive for arthralgias and back pain. Negative for neck stiffness. Left wrist discomfort Neurological: Negative for weakness and numbness. Physical Exam: ED Triage Vitals [05/06/24 2108] Weight 77.1 kg (170 lb) Actual or estimated Estimated by patient/family report Height 1.753 m (5' 9") BP (!) 156/104 Pulse 109 Resp 18 Temp 37.7 ?C (99.9 ?F) Temp source Oral SpO2 96 % Measured on Room air Physical Exam HENT: Head: Normocephalic and atraumatic. Eyes: General: No scleral icterus. Right eye: No discharge. Left eye: No discharge. Conjunctiva/sclera: Conjunctivae normal. Cardiovascular: Rate and Rhythm: Normal rate and regular rhythm. Pulses: Normal pulses. Heart sounds: Normal heart sounds. Pulmonary: Effort: Pulmonary effort is normal. Breath sounds: Normal breath sounds. Abdominal: General: Bowel sounds are normal. There is no distension. Palpations: Abdomen is soft. Tenderness: There is no abdominal tenderness. Musculoskeletal: General: Tenderness present. Cervical back: Neck supple. No rigidity or tenderness. Comments: There is mild tenderness to the medial left wrist. There is no swelling present. There is active full range of motion. The capillary refill to the fingers is brisk and sensory is intact. Skin: General: Skin is warm and dry. Neurological: Mental Status: He is alert and oriented to person, place, and time. Mental status is at baseline. Cranial Nerves: No cranial nerve deficit. Motor: No weakness. Radiology: No orders to display Lab Results: Lab Results - No data to display EKG: If EKG completed, see Procedure Note. Orders and Treatments: No orders of the defined types were placed in this encounter. Orders Placed This Encounter Medications ibuprofen (IBU) tablet 600 mg First Provider Eval: ED Events Date/Time Event User Comments 05/06/242106 Medical Screening Begins SANCHEZ LUNSFORD DO -- 05/06/242106 First Provider Evaluation SANCHEZ LUNSFORD DO -- ED COURSE Diagnosis/Impression as of 05/06/247 Sprain of left wrist, initial encounter Procedures: Procedures MDM: Medical Decision Making Patient was evaluated for the complaint of Wrist Pain (Left/) Diagnoses considered but not limited to: Contusion Dislocation Fracture Sprain Strain. Labs:were not ordered. Imaging:Ordered, and resulted, any relevant abnormalities were considered. Procedures:were not performed. History, physical exam findings, results of visit, diagnosis, medication regimens and plan of future care have been considered. Additional MDM may be found in the ED course. Vital signs were rechecked before final disposition and determined to be stable. Amount and/or Complexity of Data Reviewed Radiology: ordered. Decision-making details documented in ED Course. Risk Prescription drug management. Flowsheet Documentation: Scoring Tools: No data recorded Disposition/Condition: ED Disposition ED Disposition Kevin MORRIS Condition -- Comment -- Discharge Medications: Patient's Medications START taking these medications No medications on file CONTINUE taking these medications which have NOT CHANGED AZITHROMYCIN 250 MG TABLET Take 2 tablets by mouth daily for 1 day, THEN 1 tablet daily for 4 days. Take 500 mg day 1, then 250 mg days 2 to 5. PREDNISONE 20 MG TABLET Take 1 tablet by mouth in the morning for 5 days. START taking Modified Medications as Prescribed No medications on file STOP taking these medications No medications on file Follow-up: Electronically signed by: Sanchez Lunsford DO 05/06/247 T [facility] 2024-05-04 12:38:06 Patient dc home. Follow up with pcp as needed. Verbalized understanding. Signed dc paper work. [facility] 2024-05-04 10:35:20 Patient to ED for sore throat and body aches x 4 days. T Zaid Bustillo RN [facility] 2024-03-12 12:27:03 Pt c/o sore throat, headache, cough, congestion, runny nose, fatigue. States that it is the same symptoms that he has had for weeks now and has been seen and treated in ER twice for same complaints. Denies pain in triage. [facility] 2024-03-12 12:22:00 [facility] Emergency Department Note Patient Name: Diana Cameron Date of : 1990 33 year old male Treatment Room: Room/bed info not found Primary Care Physician: PATIENT DOES NOT HAVE A PCP Patient Escorted by: Self [9] Mode of Arrival: Personal means [1] EMS Treatment Prior to ED Arrival: BAG TESTER treatment: Other (comment) BAG TESTER treatment comments: "throat spray" Travel and Exposure Screening: Symptoms Does patient have any of these symptoms?: (not recorded) Exposure Screening Has patient had contact with someone with a communicable disease in the last month?: (not recorded) Diseases exposed to:: (not recorded) Is Patient ?: (not recorded) Exposure Date: (not recorded) Chief Complaint: Chief Complaint Patient presents with Sore Throat History of Present Illness: 3+ weeks of fatigue, cough sore throat. Seen in ER 2x previously, had swabs and one CXR a month ago, reports symptoms never improved. Took steroids and amoxil that made symptoms worse, stopped amoxil. No measured fever. Denies smoking. Past Medical History/Immunizations: Past Medical History: Diagnosis Date Bipolar disorder Insomnia Schizoaffective disorder Tetanus received in last 5 years: Unknown Allergies: Allergies Allergen Reactions Amoxicillin Nausea and/or Vomiting Ceclor [Cefaclor] Hives Past Social History: Tobacco Use Every Day Smokeless Tobacco: Never used smokeless tobacco. Alcohol Use Yes. Comments: socially Drug Use Yes; Methamphetamines, Marijuana. Past Surgical History: Past Surgical History: Procedure Laterality Date CHOLECYSTECTOMY Review of Systems: Review of Systems Constitutional: Positive for activity change and fatigue. Negative for chills and fever. HENT: Positive for sore throat. Respiratory: Positive for cough and shortness of breath. Negative for wheezing. Cardiovascular: Negative for chest pain. Gastrointestinal: Negative for abdominal pain, nausea and vomiting. Genitourinary: Negative for decreased urine volume. Musculoskeletal: Positive for myalgias. Negative for arthralgias, back pain, joint swelling, neck pain and neck stiffness. Neurological: Negative for syncope, weakness, numbness and headaches. All other systems reviewed and are negative. Physical Exam: ED Triage Vitals [03/12/24 1228] Weight 77.1 kg (170 lb) Actual or estimated Estimated by patient/family report Height 1.753 m (5' 9") BP (!) 132/97 Pulse 83 Resp 16 Temp 37 ?C (98.6 ?F) Temp source Oral SpO2 98 % Measured on Room air Physical Exam Vitals and nursing note reviewed. Constitutional: General: He is not in acute distress. Appearance: He is well-developed. He is not ill-appearing or toxic-appearing. HENT: Head: Normocephalic and atraumatic. Mouth/Throat: Mouth: Mucous membranes are moist. Pharynx: Oropharynx is clear. No oropharyngeal exudate or posterior oropharyngeal erythema. Eyes: General: No scleral icterus. Neck: Vascular: No JVD. Cardiovascular: Rate and Rhythm: Normal rate and regular rhythm. Pulses: Normal pulses. Pulmonary: Effort: Pulmonary effort is normal. No respiratory distress. Breath sounds: No wheezing or rhonchi. Abdominal: General: There is no distension. Musculoskeletal: General: No tenderness or deformity. Normal range of motion. Cervical back: Normal range of motion and neck supple. No rigidity. Lymphadenopathy: Cervical: No cervical adenopathy. Skin: General: Skin is warm and dry. Capillary Refill: Capillary refill takes less than 2 seconds. Neurological: Mental Status: He is alert. Psychiatric: Mood and Affect: Mood normal. Radiology: XR CHEST 1 VW Final Result HISTORY: Cough. TECHNIQUE: Portable AP view of the chest is obtained. Comparison made with 01/09/2024 study. FINDINGS: No acute pneumonia. No pneumothorax or pleural effusion detected. Minimal increased markings in both lower lungs are unchanged when compared with the previous study. Cardiac size is within normal limits. CONCLUSIONS: No signs of acute cardiopulmonary disease. Lab Results: Lab Results - No data to display EKG: If EKG completed, see Procedure Note. Orders and Treatments: Orders Placed This Encounter Procedures XR CHEST 1 VW Orders Placed This Encounter Medications benzonatate (TESSALON PERLES) capsule 100 mg ibuprofen (IBU) tablet 800 mg albuterol 90 mcg/actuation inhaler benzonatate 100 mg capsule First Provider Eval: ED Events Date/Time Event User Comments 03/12/24 1225 Medical Screening Begins MARTIN GRIFFIN MD -- 03/12/24 1225 First Provider Evaluation MARTIN GRIFFIN MD -- ED COURSE Diagnosis/Impression as of 03/12/24 1349 Subacute cough Sore throat Fatigue, unspecified type Procedures: Procedures MDM: Medical Decision Making Viral uri vs pneumonia vs psychosomatic disease, not consistent with flu or covid or sepsis. Clinically patient appears well, nontoxic, in NAD. Will check cxr, give P.O. medications Cxr negative for acute process. Discharge with albuterol and tessalon, local low cost clinic list given, needs PCP Problems Addressed: Fatigue, unspecified type: chronic illness or injury Sore throat: chronic illness or injury Subacute cough: complicated acute illness or injury Amount and/or Complexity of Data Reviewed Radiology: ordered. Decision-making details documented in ED Course. Risk Prescription drug management. Diagnosis or treatment significantly limited by social determinants of health. Flowsheet Documentation: Scoring Tools: No data recorded Disposition/Condition: ED Disposition ED Disposition Disch - Home Condition Stable Comment -- Discharge Medications: Patient's Medications START taking these medications ALBUTEROL 90 MCG/ACTUATION INHALER Inhale 2 Puffs every 4 (four) hours as needed for Wheezing or Shortness of Breath. BENZONATATE 100 MG CAPSULE Take 1 capsule by mouth 3 (three) times daily as needed for Cough. CONTINUE taking these medications which have NOT CHANGED AMOXICILLIN-CLAVULANATE 875-125 MG PER TABLET Take 1 tablet by mouth every 12 (twelve) hours. CYCLOBENZAPRINE 5 MG ORAL TAB Take one tablet by mouth three times a day as needed for muscle spasms HYDROCODONE-ACETAMINOPHEN 5-325 MG ORAL TAB Take one to two tabs by mouth every 4 to 6 hours as needed for pain. IBUPROFEN 600 MG ORAL TAB 1 tab po q6h prn pain IBUPROFEN 800 MG TABLET Take 1 tablet by mouth every 6 (six) hours as needed for Pain (scale 1-3). PREDNISONE 20 MG TABLET Take 3 tablets by mouth every morning. QUETIAPINE (SEROQUEL) 200 MG TABLET Take 1 tablet by mouth in the morning and 1 tablet in the evening. QUETIAPINE FUMARATE (SEROQUEL ORAL) Take 100 mg by mouth every evening. TRAZODONE HCL (TRAZODONE ORAL) Take 100 mg by mouth every evening. ZIPRASIDONE HCL (GEODON ORAL) Take by mouth. START taking Modified Medications as Prescribed No medications on file STOP taking these medications No medications on file Follow-up: Electronically signed by: Martin Griffin MD 03/12/24 1349 [facility] 2024-02-27 11:29:52 Written/verbal d/c instructions, out of er no distress LIN Torres RN [facility] 2024-02-27 11:17:00 Not in lobby LIN [facility] 2024-02-27 10:30:52 Pt arrived via private car with c/o sore throat x1 week Maritza Turner RN [facility] 2024-02-27 10:20:00 Images from the original note were not included. [facility] Emergency Department Note Patient Name: Diana Cameron Date of : 1990 33 year old male Treatment Room: [facility] ED [facility] Primary Care Physician: PATIENT DOES NOT HAVE A PCP Patient Escorted by: Self [9] Mode of Arrival: Personal means [1] EMS Treatment Prior to ED Arrival: Travel and Exposure Screening: Symptoms Does patient have any of these symptoms?: (not recorded) Exposure Screening Has patient had contact with someone with a communicable disease in the last month?: (not recorded) Diseases exposed to:: (not recorded) Is Patient ?: (not recorded) Exposure Date: (not recorded) Chief Complaint: Chief Complaint Patient presents with Sore Throat History of Present Illness: Pt here for sore throat and swelling in throat, He was seen here 10 days ago for runny nose sore throat cough His cough is gone but he has sore throat fever chills myalgia He has pain with swallowing, no issues talking but pain with any food He tamar trauma has taken no meds Has not taken anything for fever Past Medical History/Immunizations: Past Medical History: Diagnosis Date Bipolar disorder Insomnia Schizoaffective disorder Allergies: Allergies Allergen Reactions Ceclor [Cefaclor] Hives Past Social History: Tobacco Use Every Day Smokeless Tobacco: Never used smokeless tobacco. Alcohol Use Yes. Comments: socially Drug Use Yes; Methamphetamines, Marijuana. Past Surgical History: Past Surgical History: Procedure Laterality Date CHOLECYSTECTOMY Review of Systems: Review of Systems Constitutional: Positive for chills and fever. HENT: Positive for congestion, mouth sores, sore throat and trouble swallowing. Negative for voice change. All other systems reviewed and are negative. Physical Exam: ED Triage Vitals [02/27/24 1032] Weight 79.4 kg (175 lb) Actual or estimated Estimated by patient/family report Height 1.753 m (5' 9") BP 131/89 Pulse 81 Resp 16 Temp 37 ?C (98.6 ?F) Temp source Oral SpO2 97 % Measured on Room air Physical Exam Vitals and nursing note reviewed. HENT: Head: Normocephalic. Right Ear: External ear normal. Left Ear: External ear normal. Nose: Nose normal. No congestion or rhinorrhea. Mouth/Throat: Mouth: Mucous membranes are moist. Comments: Erythema to tonsils and uvula Eyes: Extraocular Movements: Extraocular movements intact. Pupils: Pupils are equal, round, and reactive to light. Cardiovascular: Rate and Rhythm: Normal rate. Pulses: Normal pulses. Heart sounds: Normal heart sounds. Pulmonary: Effort: Pulmonary effort is normal. Abdominal: General: Abdomen is flat. Palpations: Abdomen is soft. Musculoskeletal: General: No swelling or deformity. Normal range of motion. Cervical back: Normal range of motion. Lymphadenopathy: Cervical: Cervical adenopathy present. Skin: General: Skin is warm. Capillary Refill: Capillary refill takes less than 2 seconds. Neurological: General: No focal deficit present. Mental Status: He is alert and oriented to person, place, and time. Radiology: No orders to display Lab Results: Lab Results - No data to display EKG: If EKG completed, see Procedure Note. Orders and Treatments: Orders Placed This Encounter Procedures Rapid Strep Screen For Group A Orders Placed This Encounter Medications dexamethasone sod phos PF injection 10 mg First Provider Eval: ED Events Date/Time Event User Comments 02/27/24 1029 Medical Screening Begins ROCIO PATEL MD T -- 02/27/24 1029 First Provider Evaluation ROCIO PATEL MD -- ED COURSE Diagnosis/Impression as of 02/27/24 1059 Sore throat Uvulitis Procedures: Procedures MDM: Medical Decision Making Pt here for sore throat and swelling in throat, He was seen here 10 days ago for runny nose sore throat cough His cough is gone but he has sore throat fever chills myalgia He has pain with swallowing, no issues talking but pain with any food He tamar trauma has taken no meds Has not taken anything for fever Ddx strep, viral pharynghitis, tonsliitis, uvulitis Pt had negative viral swabs Now has isolated pharynghtiis with fever/chills, will traet Steroids given for swelling in uvula Abx for bactrial coverage Culture sent Problems Addressed: Sore throat: Details: Strep test, augmentin/prednisone Amount and/or Complexity of Data Reviewed Labs: ordered. Risk Prescription drug management. Flowsheet Documentation: Scoring Tools: No data recorded Disposition/Condition: ED Disposition None Discharge Medications: Patient's Medications START taking these medications No medications on file CONTINUE taking these medications which have NOT CHANGED CYCLOBENZAPRINE 5 MG ORAL TAB Take one tablet by mouth three times a day as needed for muscle spasms HYDROCODONE-ACETAMINOPHEN 5-325 MG ORAL TAB Take one to two tabs by mouth every 4 to 6 hours as needed for pain. IBUPROFEN 600 MG ORAL TAB 1 tab po q6h prn pain IBUPROFEN 800 MG TABLET Take 1 tablet by mouth every 6 (six) hours as needed for Pain (scale 1-3). QUETIAPINE (SEROQUEL) 200 MG TABLET Take 1 tablet by mouth in the morning and 1 tablet in the evening. QUETIAPINE FUMARATE (SEROQUEL ORAL) Take 100 mg by mouth every evening. TRAZODONE HCL (TRAZODONE ORAL) Take 100 mg by mouth every evening. ZIPRASIDONE HCL (GEODON ORAL) Take by mouth. START taking Modified Medications as Prescribed No medications on file STOP taking these medications No medications on file Follow-up: Electronically signed by: Rocio Patel MD 02/27/24 1059 [facility] 2024-02-20 13:35:23 Pt discharged with diagnosis of acute viral syndrome, ringing in right ear, and episodic cluster JONES. Printed and verbal instructions reviewed with and given to patient. No new prescriptions given for this visit. Pt verbalized understanding of teaching and recommended follow-up. Denies questions or concerns at this time. Pt ambulatory at discharge. Appears in no apparent distress. No ataxia noted. Accompanied by family member. T Shruthi Caballero RN [facility] 2024-02-20 11:51:57 C/o of cough and congestion that started last week with nausea. Complaining of right ear ringing that started months ago and got worse since coughing. Vivian Mohamud RN [facility] 2024-01-09 13:54:42 PT D/C home. GCS15, VS stable, no ataxia noted. Given two prescriptions and D/C paperwork. Pt ambulatory at time of discharge. Pt educated on med refill, chest pain, med usage, follow up care, s/s worsening condition. Pt verbalized understanding. [facility]IDER[facility] Nicolasa Castillo RN [facility] 2024-01-09 12:46:53 Pt arrived via private car with c/o being "out of my psych meds" and middle chest wall pain that started "probably 2 or 3 months ago". EKG preformed in triage. [facility] Maritza Turner RN [facility] 2024-01-09 12:41:00 Associated Order(s): EKG-12 Lead ROUTINE ONCE Pre-Procedure Diagnose(s): Chest pain in adult Post-Procedure Diagnose(s): Chest pain in adult [facility] Emergency Department Note Patient Name: Diana Cameron Date of : 1990 33 year old male Treatment Room: Room/bed info not found Primary Care Physician: PATIENT DOES NOT HAVE A PCP Patient Escorted by: Self [9] Mode of Arrival: Personal means [1] EMS Treatment Prior to ED Arrival: Travel and Exposure Screening: Symptoms Does patient have any of these symptoms?: (not recorded) Exposure Screening Has patient had contact with someone with a communicable disease in the last month?: (not recorded) Diseases exposed to:: (not recorded) Is Patient ?: (not recorded) Exposure Date: (not recorded) Chief Complaint: No chief complaint on file. History of Present Illness: Pt here for 'im out of my psych meds' Pt states takes seroquel bid and ran out He has not had feve rchill He wants STD testing He wants EKG chest xray He want HIV testing He has no acute decompensation He has muscular pain worse with moving arm on left side of chest better with rest worse with palpation Past Medical History/Immunizations: Past Medical History: Diagnosis Date Bipolar disorder Insomnia Schizoaffective disorder Allergies: Allergies Allergen Reactions Ceclor [Cefaclor] Hives Past Social History: Tobacco Use Every Day Smokeless Tobacco: Never used smokeless tobacco. Alcohol Use Yes. Comments: socially Drug Use Yes; Methamphetamines, Marijuana. Past Surgical History: Past Surgical History: Procedure Laterality Date CHOLECYSTECTOMY Review of Systems: Review of Systems Constitutional: Negative for chills and fatigue. HENT: Negative. Respiratory: Positive for chest tightness. Cardiovascular: Negative. All other systems reviewed and are negative. Physical Exam: ED Triage Vitals Weight Actual or estimated Height BP Pulse Resp Temp Temp src SpO2 Measured on Physical Exam Vitals and nursing note reviewed. Constitutional: Appearance: He is normal weight. HENT: Head: Normocephalic. Right Ear: External ear normal. Left Ear: External ear normal. Nose: Nose normal. Eyes: Pupils: Pupils are equal, round, and reactive to light. Cardiovascular: Rate and Rhythm: Normal rate and regular rhythm. Pulmonary: Effort: Pulmonary effort is normal. Abdominal: General: Abdomen is flat. Musculoskeletal: General: No swelling or deformity. Normal range of motion. Skin: General: Skin is warm. Capillary Refill: Capillary refill takes less than 2 seconds. Neurological: General: No focal deficit present. Mental Status: He is alert and oriented to person, place, and time. Radiology: No orders to display Lab Results: Lab Results - No data to display EKG: If EKG completed, see Procedure Note. Orders and Treatments: No orders of the defined types were placed in this encounter. No orders of the defined types were placed in this encounter. First Provider Eval: ED Events None ED COURSE Diagnosis/Impression as of 01/09/24 1255 Chest pain in adult Encounter for medication refill Procedures: EKG-12 Lead ROUTINE ONCE Date/Time: 01/09/2024 1:03 PM Performed by: Rocio Patel MD Authorized by: Rocio Patel MD Rate: ECG rate: 95 ECG rate assessment: normal Rhythm: Rhythm: sinus rhythm QRS: QRS axis: Normal QRS intervals: Normal QRS conduction: normal ST segments: ST segments: Normal MDM: Medical Decision Making Pt here for 'im out of my psych meds' Pt states takes seroquel bid and ran out He has not had feve rchill He wants STD testing He wants EKG chest xray He want HIV testing He has no acute decompensation He has muscular pain worse with moving arm on left side of chest better with rest worse with palpation Ddx ptx, muscle spasm Med nonocmpliance Meds refilled EKG stable xray stable, looks well Pt needs psych meds will refill and refer to [facility] Problems Addressed: Chest pain in adult: Details: EKG cxr Encounter for medication refill: Details: Seroquel refil Amount and/or Complexity of Data Reviewed Radiology: ordered. Details: Neg acute Risk OTC drugs. Prescription drug management. Flowsheet Documentation: Scoring Tools: No data recorded Disposition/Condition: ED Disposition None Discharge Medications: Patient's Medications START taking these medications No medications on file CONTINUE taking these medications which have NOT CHANGED CYCLOBENZAPRINE 5 MG ORAL TAB Take one tablet by mouth three times a day as needed for muscle spasms HYDROCODONE-ACETAMINOPHEN 5-325 MG ORAL TAB Take one to two tabs by mouth every 4 to 6 hours as needed for pain. IBUPROFEN 600 MG ORAL TAB 1 tab po q6h prn pain QUETIAPINE FUMARATE (SEROQUEL ORAL) Take 100 mg by mouth every evening. TRAZODONE HCL (TRAZODONE ORAL) Take 100 mg by mouth every evening. ZIPRASIDONE HCL (GEODON ORAL) Take by mouth. START taking Modified Medications as Prescribed No medications on file STOP taking these medications No medications on file Follow-up: Electronically signed by: Rocio Patel MD 01/09/24 1306 [facility]
--- NOTE | 2024-07-15 16:38 | ER ---
Nurse's Notes [facility] Name: Roni Cameron Age: 34 yrs Sex: Male : 1990 Arrival Date: 07/15/2024 Time: 14:02 Bed 11 Private MD: Diagnosis: Acute gastritis;Gastro-esophageal reflux disease without esophagitis;Post-traumatic stress disorder (PTSD);Ascariasis, unspecified;Bipolar disorder, unspecified Presentation: 07/15 14:40 Chief complaint: Patient states: RUQ abdominal pain onset 3-4 days ago. Pt states that cm10 he has also had diarrhea "and I think I got round worms from my dog." Pt reports needing his psych meds refilled. Coronavirus screen: Client denies travel out of the [place] in the last 14 days. At this time, the client does not indicate any symptoms associated with coronavirus-19. Ebola Screen: Patient denies travel to an Ebola-affected area in the 21 days before illness onset. No symptoms or risks identified at this time. Initial Sepsis Screen: Does the patient meet any 2 criteria? No. Patient's initial sepsis screen is negative. Does the patient have a suspected source of infection? No. Patient's initial sepsis screen is negative. Risk Assessment: Do you want to hurt yourself or someone else? Patient reports no desire to harm self or others. Onset of symptoms was July 15, 2024. 14:40 Method Of Arrival: Ambulatory cm10 14:40 Acuity: EMILY 3 cm10 Triage Assessment: 14:41 General: Appears in no apparent distress. comfortable, Behavior is calm, cooperative. cm10 Neuro: No deficits noted. Level of Consciousness is awake, alert, obeys commands, Oriented to person, place, time, situation, Appropriate for age. Respiratory: No deficits noted. Airway is patent Respiratory effort is even, unlabored, Respiratory pattern is regular, symmetrical. Historical: - Allergies: 14:41 Ceclor; cm10 - PMHx: 14:41 Bipolar disorder; gastritis; GERD; PTSD; Schizophrenia; cm10 - PSHx: 14:41 Cholecystectomy; cm10 - Immunization history:: Adult Immunizations up to date. - Infectious Disease History:: Denies. - Social history:: Smoking status: Patient denies any tobacco usage or history of. Vital Signs: 14:40 BP 153 / 96; Pulse 83; Resp 16; Temp 97.3; Pulse Ox 96% on R/A; Weight 79.38 kg; Height cm10 5 ft. 9 in. ; Pain 8/10; 14:40 Body Mass Index 25.84 (79.38 kg, 175.26 cm) cm10 14:40 Pain Scale: Adult cm10 ED Course: 14:04 Patient arrived in ED. ra3 14:10 Bhavesh Simeon MD is Attending Physician. anders 14:41 Triage completed. cm10 14:42 Arm band placed on Patient placed in waiting room. cm10 16:35 Leni Hammond MD is Referral Physician. anders 16:44 Antonia Isaacs, RN is Primary Nurse. iw Administered Medications: 07/16 08:36 Not Given (Patient Refused): [id number] mg PO once iw Outcome: 07/15 16:37 Discharge ordered by . anders 17:11 Patient left the ED. iw Signatures: Bhavesh Simeon MD MD cha Williams, Irene, RN [facility] Liza Martinez RN RN [facility] Marisa Barfield ra3
--- NOTE | 2024-07-15 16:38 | EDPHYS ---
Physician Documentation [facility] Name: Roni Cameron Age: 34 yrs Sex: Male : 1990 Arrival Date: 07/15/2024 Time: 14:02 Bed 11 Private MD: ED Physician Bhavesh Simeon HPI: 07/15 16:29 This 34 yrs old Male presents to ER via Ambulatory with complaints of Flank anders Pain, Medication Refill. Historical: - Allergies: 14:41 Ceclor; cm10 - PMHx: 14:41 Bipolar disorder; gastritis; GERD; PTSD; Schizophrenia; cm10 - PSHx: 14:41 Cholecystectomy; cm10 - Immunization history:: Adult Immunizations up to date. - Infectious Disease History:: Denies. - Social history:: Smoking status: Patient denies any tobacco usage or history of. ROS: 16:29 Constitutional: Negative for fever, chills, and weight loss, Eyes: Negative for injury, anders pain, redness, and discharge, ENT: Negative for injury, pain, and discharge, Neck: Negative for injury, pain, and swelling, Cardiovascular: Negative for chest pain, palpitations, and edema, Respiratory: Negative for shortness of breath, cough, wheezing, and pleuritic chest pain, Back: Negative for injury and pain, : Negative for injury, bleeding, discharge, and swelling, MS/Extremity: Negative for injury and deformity, Skin: Negative for injury, rash, and discoloration, Neuro: Negative for headache, weakness, numbness, tingling, and seizure, Psych: Negative for depression, anxiety, suicide ideation, homicidal ideation, and hallucinations, Allergy/Immunology: Negative for hives, rash, and allergies, Endocrine: Negative for neck swelling, polydipsia, polyuria, polyphagia, and marked weight changes, Hematologic/Lymphatic: Negative for swollen nodes, abnormal bleeding, and unusual bruising, 16:29 Abdomen/GI: Positive for abdominal pain, of the right upper quadrant, Exam: 16:29 Constitutional: This is a well developed, well nourished patient who is awake, alert, anders and in no acute distress. Head/Face: Normocephalic, atraumatic. Eyes: Pupils equal round and reactive to light, extra-ocular motions intact. Lids and lashes normal. Conjunctiva and sclera are non-icteric and not injected. Cornea within normal limits. Periorbital areas with no swelling, redness, or edema. ENT: Nares patent. No nasal discharge, no septal abnormalities noted. Tympanic membranes are normal and external auditory canals are clear. Oropharynx with no redness, swelling, or masses, exudates, or evidence of obstruction, uvula midline. Mucous membranes moist. Neck: Trachea midline, no thyromegaly or masses palpated, and no cervical lymphadenopathy. Supple, full range of motion without nuchal rigidity, or vertebral point tenderness. No Meningismus. Chest/axilla: Normal chest wall appearance and motion. Nontender with no deformity. No lesions are appreciated. Cardiovascular: Regular rate and rhythm with a normal S1 and S2. No gallops, murmurs, or rubs. Normal PMI, no JVD. No pulse deficits. Respiratory: Lungs have equal breath sounds bilaterally, clear to auscultation and percussion. No rales, rhonchi or wheezes noted. No increased work of breathing, no retractions or nasal flaring. Back: No spinal tenderness. No costovertebral tenderness. Full range of motion. Male : Normal genitalia with no discharge or lesions. Skin: Warm, dry with normal turgor. Normal color with no rashes, no lesions, and no evidence of cellulitis. MS/ Extremity: Pulses equal, no cyanosis. Neurovascular intact. Full, normal range of motion. Neuro: Awake and alert, GCS 15, oriented to person, place, time, and situation. Cranial nerves II-XII grossly intact. Motor strength 5/5 in all extremities. Sensory grossly intact. Cerebellar exam normal. Normal gait. Psych: Awake, alert, with orientation to person, place and time. Behavior, mood, and affect are within normal limits. 16:29 Abdomen/GI: Inspection: abdomen appears normal, Bowel sounds: active, all quadrants, Palpation: mild abdominal tenderness, in the right upper quadrant, 16:29 Back: Exam negative for Vital Signs: 14:40 BP 153 / 96; Pulse 83; Resp 16; Temp 97.3; Pulse Ox 96% on R/A; Weight 79.38 kg; Height cm10 5 ft. 9 in. ; Pain 8/10; 14:40 Body Mass Index 25.84 (79.38 kg, 175.26 cm) cm10 14:40 Pain Scale: Adult cm10 MDM: 14:10 Patient medically screened. anders 16:31 Differential diagnosis: gastritis. Data reviewed: vital signs, nurses notes. [facility] Consideration of Admission/Observation Escalation of care including admission/observation considered. I considered the following discharge prescriptions or medication management in the emergency department Medications were administered in the Emergency Department. See MAR. Test considered but Not performed: EKG: NO EKG. Labs: NO LABS. Historians other than the Patient: PT WELL INFORMED. Care significantly affected by the following chronic conditions: BIPOLAR, GERD., PTSD, SCHIZO. ED course: PT NEEDS SEROQUEL REFILLED AND MEDS FOR WORMS. Administered Medications: 07/16 08:36 Not Given (Patient Refused): [id number] mg PO once iw Disposition Summary: 07/15/24 16:37 Discharge Ordered Notes: Location: Home anders Problem: new anders Symptoms: have improved anders Condition: Stable anders Diagnosis - Acute gastritis anders - Gastro-esophageal reflux disease without esophagitis anders - Post-traumatic stress disorder (PTSD) anders - Ascariasis, unspecified anders - Bipolar disorder, unspecified anders Followup: anders - With: Private Physician - When: 2 - 3 days - Reason: Recheck today's complaints, Continuance of care, Re-evaluation by your physician Followup: anders - With: Leni Hammond MD - When: 2 - 3 days - Reason: Recheck today's complaints, Re-evaluation by your physician Discharge Instructions: - Discharge Summary Sheet anders - Food Choices for Gastroesophageal Reflux Disease, Adult anders - Esophagitis anders - Gastroesophageal Reflux Disease, Adult anders - Tapeworm Infection anders - Gastroesophageal Reflux Disease, Adult, [id number] anders - Indigestion, [id number] anders - Food Choices for Gastroesophageal Reflux Disease, Adult, [id number] anders - Mixed Bipolar Disorder [facility] Forms: - Medication Reconciliation Form [facility] - Antibiotic Education anders - Prescription Opioid Use anders - Patient Portal Instructions [facility] - Leadership Thank You Letter [facility] Prescriptions: - Seroquel 300 mg Oral tablet - take 1 tablet ORAL route every day at bedtime; 30 tablet; Refills: 0, Product anders Selection Permitted - albendazole 200 mg Oral tablet - take 2 tablet ORAL route 2 times per day for 7 days must administer with food, anders preferably a high-fat meal; 28 tablet; Refills: 0, Product Selection Permitted - Protonix 40 mg Oral Tablet - take 1 tablet ORAL route once daily; 30 tablet; Refills: 0, Product Selection andesr Permitted Signatures: Bhavesh Simeon MD MD cha Martinez, Clarissa, RN RN cm10 Antonia Isaacs RN iw
[2024-07-15 17:20] VITALS: BP 153/96; TEMP 97.3; O2SAT 96
== END 2024-07-15 17:11 | disposition home or self-care (01) ==
LOC: ER 14:02
DX: K29.00 Acute gastritis without bleeding (principal); K21.9 Gastro-esophageal reflux disease without esophagitis; B77.9 Ascariasis, unspecified; F43.10 Post-traumatic stress disorder, unspecified; F31.9 Bipolar disorder, unspecified
CPT/HCPCS: 99281

== ENCOUNTER 2024-08-09 18:05 | Emergency (ER) | payer SELFPAY ==
--- OUTSIDE RECORDS SUMMARY | 2024-08-09 18:09 | XMS REPORT | Continuity of Care Document ---
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 % (test code = 5905-5) 9.9 % EOS % (test code = 713-8) 3.3 % BASO % (test code = 706-2) 0.9 % GRAN MAT x10^3(ANC) (test code = 6932396698) 5.50 10*3/uL 1.99-6.95 IMM GRAN x10^3 (test code = 2170133337) 0.04 10*3/uL 0.00-0.06 LYMPH x10^3 (test code = 731-0) 1.80 10*3/uL 1.09-3.23 MONO x10^3 (test code = 742-7) 0.85 10*3/uL 0.36-1.02 EOS x10^3 (test code = 711-2) 0.28 10*3/uL 0.06-0.53 BASO x10^3 (test code = 704-7) 0.08 10*3/uL 0.01-0.09 Lab Interpretation (test code = 43495-5) Abnormal [facility] Notes Date/Time Note Provider Source 2024-05-30 18:41:18 Patient given discharge instructions on not taking medication as directed. Pt let ER ambulatory, no signs of distress. T [facility] 2024-05-30 17:48:40 Patient states: "I'm out of my psych meds. I've been out of them for a month. I missed my appt." Seroquel 400 mg QHS, Kyleigh Fritz RN [facility] 2024-05-29 23:21:08 Walked pt to bathroom to give urine sample and change into paper scrubs. Pt abruptly walked out of bathroom grabbed his belongings, yelled, "fuck this place" and walked out of ER. [facility] 2024-05-29 22:59:06 Pt states he is schizophrenic and he is "losing his mind". "I think I am being poisoned." Pt takes Seroquel but hasn't taken it in a few weeks. Hear voices. States the voices are "harassing me" Pt states he wants to be admitted to psychiatric hospital. Pt isn't sure if he is suicidal. NO plan. Maria Eugenia Milner RN [facility] 2024-05-29 22:48:00 [facility] Emergency Department Note Patient Name: Diana Cameron Date of : 1990 33 year old male Treatment Room: [place] [address] Primary Care Physician: PATIENT DOES NOT HAVE A PCP Patient Escorted by: Self [9] Mode of Arrival: Personal means [1] EMS Treatment Prior to ED Arrival: [employer] treatment: None Travel and Exposure Screening: Symptoms [...] Procedures CBC WITH DIFF COMP. METABOLIC PANEL (52941) URINE DRUG (IMMUNOASSAY) - COMPREHENSIVE DRUG SCREEN [...] Electronically signed by: Rehana Isaacs DO 05/29/242322 [facility] 2024-05-06 22:51:39 Pt called multiple times from by registration and radiology staff without answer. Pt LWBS. Pearl Gudino RN [facility] 2024-05-06 21:07:38 Patient arrived ambulatory c/o of wrist pain after a slip and fall today Vivian Mohamud RN [facility] 2024-05-06 21:00:00 [facility] Emergency Department Note Patient Name: Diana Cameron Date of : 1990 33 year old male Treatment Room: [facility] ED [facility] DANIELA/MIGDALIA Primary Care Physician: PATIENT DOES NOT [...] This patient relates that he was at [facility] today at approximate 4:30 when [...] DO -- ED COURSE Diagnosis/Impression as of 05/06/242256 Sprain of left wrist, initial encounter Procedures: [...] signed by: Sanchez Lunsford DO 05/06/247 T [facility] 2024-05-04 12:38:06 Patient dc home. Follow up with pcp as needed. Verbalized understanding. Signed dc paper work. [facility] 2024-05-04 10:35:20 Patient to ED for sore throat and body aches x 4 days. T Zaid Bustillo RN [facility] 2024-03-12 12:27:03 Pt c/o sore throat, headache, cough, congestion, runny nose, fatigue. States that it is the same symptoms that he has had for weeks now and has been seen and treated in ER twice for same complaints. Denies pain in triage. [facility] 2024-03-12 12:22:00 [facility] Emergency Department Note Patient Name: Diana Cameron Date of : 1990 33 year old male Treatment Room: Room/bed info not found Primary Care Physician: PATIENT DOES NOT HAVE A PCP Patient Escorted by: Self [9] Mode of Arrival: Personal means [1] EMS Treatment Prior to ED Arrival: [employer] treatment: Other (comment) [employer] treatment comments: "throat spray" Travel and Exposure [...] signed by: Martin Griffin MD 03/12/24 1349 [facility] 2024-02-27 11:29:52 Written/verbal d/c instructions, out of er no distress LIAT Luisa Torres RN [facility] 2024-02-27 11:17:00 Not in lobby [facility] 2024-02-27 10:30:52 Pt arrived via private car with c/o sore throat x1 week Maritza Turner RN [facility] 2024-02-27 10:20:00 Images from the original note were not included. [facility] Emergency Department Note Patient Name: Diana Cameron Date of : 1990 33 year old male Treatment Room: [facility] ED [facility] Primary Care Physician: PATIENT DOES NOT HAVE [...] 1029 Medical Screening Begins ROCIO PATEL MD -- 02/27/24 1029 First Provider Evaluation ROCIO [...] signed by: Rocio Patel MD 02/27/24 1059 T [facility] 2024-02-20 13:35:23 Pt discharged with diagnosis of [...] No ataxia noted. Accompanied by family member. [facility] Shruthi Caballero RN [facility] 2024-02-20 11:51:57 C/o of cough and congestion that started last week with nausea. Complaining of right ear ringing that started months ago and got worse since coughing. Vivian Mohamud RN [facility] 2024-01-09 13:54:42 PT D/C home. GCS15, VS stable, no ataxia noted. Given two prescriptions and D/C paperwork. Pt ambulatory at time of discharge. Pt educated on med refill, chest pain, med usage, follow up care, s/s worsening condition. Pt verbalized understanding. [employer] Nicolasa Castillo RN [facility] 2024-01-09 12:46:53 Pt arrived via private car with c/o being "out of my psych meds" and middle chest wall pain that started "probably 2 or 3 months ago". EKG preformed in triage. [facility] Maritza Turner RN [facility] 2024-01-09 12:41:00 Associated Order(s): EKG-12 Lead ROUTINE ONCE Pre-Procedure Diagnose(s): Chest pain in adult Post-Procedure Diagnose(s): Chest pain in adult [facility] Emergency Department Note Patient Name: Diana Cameron [...] psych meds will refill and refer [facility] Problems Addressed: Chest pain in adult: Details: [...] signed by: Rocio Patel MD 01/09/24 1306 [facility]
[2024-08-09] MEDS ORDERED: KETOROLAC 30 MG/ML INJ ONE (18:43)
[2024-08-09] MEDS ORDERED: DIPHENHYDRAMINE 50 MG/ML VIAL ONE (18:43)
[2024-08-09] MEDS ORDERED: NA CHLORIDE 0.9% 1,000 ML ONE (18:43)
[2024-08-09] MEDS ORDERED: NA CHLORIDE 0.9% 50 ML ONE (18:43)
[2024-08-09] MEDS ORDERED: METOCLOPRAMIDE 10 MG/2mL INJ ONE (18:43)
[2024-08-09 18:59] LABS: Absolute Eosinophils 0.1 K/uL (0-0.5); Absolute Lymphocytes (CBC) 1.7 K/uL (0.7-4.9); Absolute Neutrophil 6.5 K/uL (1.8-8.0); Basophils % 0.4 % (0-1.3); Eosinophils % 0.9 % (0-4.4); Hematocrit 48.1 % (39.6-49.0); Lymphocytes % 18.5 % (15.3-44.8); MCH 29.4 pg (27.0-35.0); MCHC 33.3 g/dL (32.0-36.0); MCV 88.1 fL (80-100); MPV 7.7 fL (7.6-11.3); Monocytes % 10.8 % (3.3-12.3); Neutrophils % 69.4 % (41.7-73.7); Platelets 313 thou/uL (152-406); RBC Red Blood Cell Count 5.46 M/uL (4.33-5.43)
[2024-08-09 19:14] LABS: Albumin 4.4 g/dL (3.4-5.0); Albumin/Globulin Ratio 1.2 (1.1-1.8); Anion Gap 10.8 mEq/L (5.0-15.0); Bilirubin Total 1.1 mg/dL (0.2-1.0); Globulin 3.8 g/dL (2.3-3.5); Potassium 3.8 mEq/L (3.5-5.1); Protein, Total 8.2 g/dL (6.4-8.2)
--- NOTE | 2024-08-09 20:21 | RAD REPORT ---
EXAMINATION: CT ABDOMEN AND PELVIS WITH CONTRAST CLINICAL INDICATION: Male, 34 years old.diarrhea;Abd pain TECHNIQUE: CT abdomen and pelvis was performed, after the administration of IV contrast, as per [facility] protocol. Axial, sagittal and coronal reconstructions were obtained. One or more of the following dose reduction techniques were used: Automated exposure control, adjustment of the mA and/o r kV according to patient size, and/or iterative reconstruction. Unless otherwise specified, incidental findings do not require dedicated imaging follow-up. [id number]. COMPARISON: 09/05/2022 FINDINGS: LOWER CHEST: Mild circumferential thickening distal esophagus could reflect mild esophagitis. LIVER: Hepatic steatosis. No focal masses. GALLBLADDER/BILE DUCT: Corticectomy.? PANCREAS: No mass, ductal dilation, or vincent-pancreatic fluid. SPLEEN: Normal size. No focal lesion. ADRENALS: Normal; no mass. KIDNEYS AND URETERS: 4 mm stone in the right kidney. No hydronephrosis. No ureteral calculi. No suspi cious renal masses. URINARY BLADDER: Normal contour. GASTROINTESTINAL TRACT: Stomach is non-dilated. Small bowel has normal course and caliber. No colonic wall thickening or pericolonic inflammatory changes. Normal appendix. PERITONEUM: No ascites. Small fat-containing umbilical hernia. LYMPH NODES: No lymphadenopathy. ABDOMINAL AORTA AND OTHER VESSELS: Normal caliber aorta and IVC. REPRODUCTIVE ORGANS: No pathologic process MUSCULOSKELETAL: No acute or suspicious osseous abnormality. ADDITIONAL FINDINGS: None. IMPRESSION: No acute or significant abnormalities seen in the abdomen or pelvis. Nonobstructive right nephrolithi asis. Normal appendix.
[2024-08-09 20:44] LABS: Sqamous Epithelial <5 /HPF (None Seen); Urine Bacteria <20 /HPF (<20); Urine Bilirubin NEGATIVE (Negative); Urine Blood Negative (Negative); Urine Clarity Clear (Clear); Urine Color Light-Yellow (Yellow); Urine Culture Reflex Order NOT NEEDED; Urine Glucose NEGATIVE (Negative); Urine Ketones 1+ (Negative); Urine Microscopic Reflex YN ORDER UMIC; Urine Mucus Slight /HPF (None Seen); Urine Nitrite NEGATIVE (Negative); Urine Protein TRACE (Negative); Urine RBC <5 /HPF (None Seen); Urine Urobilinogen Normal (Normal); Urine WBC <5 /HPF (<5)
[2024-08-09 20:47] LABS: Barbiturates NEGATIVE (NEGATIVE); Benzodiazepines NEGATIVE (NEGATIVE); Cocaine NEGATIVE (NEGATIVE); METHAMPHETAM NEGATIVE (NEGATIVE); Methadone NEGATIVE (NEGATIVE); Opiates NEGATIVE (NEGATIVE); Phencyclidine NEGATIVE (NEGATIVE); THC Cannibis POSITIVE (NEGATIVE)
[2024-08-09 20:58] LABS: Specific Gravity > 1.030 (1.005-1.030)
--- NOTE | 2024-08-09 21:12 | EDPHYS ---
Physician Documentation [facility] Name: Roni Cameron Age: 34 yrs Sex: Male : 1990 Arrival Date: 08/09/2024 Time: 18:05 Bed 20 Private MD: ED Physician Joe Carlson HPI: 08/09 18:45 This 34 yrs old Male presents to ER via Ambulatory with complaints of Abdominal Pain, cp Parasite, Headache, Liver pain. 18:45 The patient presents with abdominal pain that is diffuse, abdominal distention that is cp diffuse. diarrhea. 18:45 Onset: The symptoms/episode began/occurred 3 day(s) ago. Associated signs and symptoms: cp Pertinent positives: headache, Pertinent negatives: blood in stools, constipation, fever, shortness of breath, vomiting. Severity of pain: in the emergency department the pain is unchanged despite home interventions. Patient reports medication he was prescribed at previous visit for intestinal worm infection, he was unable to fill prescription due to cost and has unfilled RX in hand. Patient also requesting refill of psych medication, Seroquel that he is attempting to wean himself off. Historical: - Allergies: 18:17 Ceclor; hb - Home Meds: 18:17 Geodon Oral [Active]; Seroquel Oral [Active]; Trazodone Oral [Active]; hb - PMHx: 18:17 Bipolar disorder; gastritis; GERD; PTSD; Schizophrenia; hb - PSHx: 18:17 Cholecystectomy; hb - Immunization history:: Adult Immunizations up to date. - Infectious Disease History:: Denies. - Social history:: Smoking status: Patient denies any tobacco usage or history of. ROS: 18:50 Constitutional: Negative for body aches, chills, fever, poor PO intake, cp 18:50 Cardiovascular: Negative for chest pain, edema, palpitations, cp 18:50 Respiratory: Negative for cough, shortness of breath, wheezing, 18:50 Eyes: Negative for injury, pain, redness, and discharge, cp 18:50 ENT: Negative for drainage from ear(s), ear pain, sore throat, difficulty swallowing, difficulty handling secretions, 18:50 Abdomen/GI: Positive for abdominal pain, diarrhea, Negative for constipation, black/tarry stool, rectal bleeding, 18:50 Back: Negative for pain at rest, pain with movement, 18:50 Neuro: Positive for headache, Negative for altered mental status, numbness, syncope, weakness, 18:50 : Negative for urinary symptoms, testicular pain cp 18:50 All other systems are negative, Exam: 18:55 Constitutional: The patient appears in no acute distress, alert, awake, non-toxic, well cp developed, well nourished, 18:55 Head/Face: Normocephalic, atraumatic. cp 18:55 Eyes: Periorbital structures: appear normal, Conjunctiva: normal, no exudate, no injection, Sclera: no appreciated abnormality, Lids and lashes: appear normal, bilaterally, 18:55 ENT: External ear(s): are unremarkable, Nose: is normal, Mouth: Lips: moist, Oral mucosa: pink and intact, moist, Posterior pharynx: Airway: no evidence of obstruction, patent, 18:55 Chest/axilla: Inspection: normal, 18:55 Cardiovascular: Rate: tachycardic, Rhythm: regular, Edema: is not appreciated, JVD: is not appreciated, 18:55 Respiratory: the patient does not display signs of respiratory distress, Respirations: normal, no use of accessory muscles, no retractions, labored breathing, is not present, Breath sounds: are clear throughout, no decreased breath sounds, no stridor, no wheezing, 18:55 Abdomen/GI: Inspection: distension, that is mild, Bowel sounds: active, all quadrants, Palpation: soft, in all quadrants, mild abdominal tenderness, in the epigastric area and right upper quadrant, rebound tenderness, is not appreciated, involuntary guarding, is not appreciated, 18:55 Back: CVA tenderness, is absent, 18:55 Neuro: Orientation: to person, place \T\ time. Mentation: is normal, Cerebellar function: is grossly normal, Motor: moves all fours, strength is normal, Sensation: is normal, Vital Signs: 18:16 BP 114 / 90; Pulse 100; Resp 16; Temp 98(O); Pulse Ox 96% on R/A; Weight 79.38 kg; hb Height 5 ft. 9 in. ; Pain 8/10; 18:45 BP 136 / 99; Pulse 79; Resp 18; Pulse Ox 94% on R/A; db 20:30 BP 150 / 87; Pulse 76; Resp 18 S; Pulse Ox 98% on R/A; Pain 0/10; br2 18:16 Body Mass Index 25.84 (79.38 kg, 175.26 cm) hb 18:16 Pain Scale: Adult hb 20:30 Pain Scale: Adult br2 MDM: 18:15 Patient medically screened. cp 19:00 Differential diagnosis: bowel obstruction, cholecystitis, Cholelithiasis, cp diverticulitis, gastritis, pancreatitis, Ureterolithiasis, urinary tract infection. 21:10 Data reviewed: vital signs, nurses notes, lab test result(s), radiologic studies, CT cp scan, and as a result, I will discharge patient. 21:11 I considered the following discharge prescriptions or medication management in the emergency department Medications were administered in the Emergency Department. See MAR. 21:11 Counseling: I had a detailed discussion with the patient and/or guardian regarding the cp historical points, exam findings, and any diagnostic results supporting the discharge/admit diagnosis, lab results, radiology results, to return to the emergency department if symptoms worsen or persist or if there are any questions or concerns that arise at home. Special discussion: Based on the patient's Hx, exam, and Dx evaluation, there is no indication for emergent surgery or inpatient Tx. It is understood by the patient/guardian that if the Sx's persist or worsen they need to return immediately for re-evaluation. 08/09 18:39 Order name: CBC with Diff; Complete Time: 19:08 cp 08/09 19:08 Interpretation: Normal except: RBC 5.46. cp 08/09 18:39 Order name: CMP; Complete Time: 19:39 cp 08/09 18:39 Order name: Lipase; Complete Time: 19:39 cp 08/09 18:39 Order name: Urinalysis w/ reflexes; Complete Time: 21:02 cp 08/09 21:02 Interpretation: Normal except: Urine SG > 1.030; UKET 1+; UPROT TRACE. cp 08/09 18:40 Order name: Fecal Leukocyte Stain cp 08/09 18:40 Order name: Ova And Parasites cp 08/09 18:40 Order name: Rotavirus Antigen cp 08/09 18:40 Order name: Stool Culture cp 08/09 18:40 Order name: CDIFF cp 08/09 19:09 Order name: UDS; Complete Time: 21:02 cp 08/09 21:02 Interpretation: THC POSITIVE. cp 08/09 19:40 Order name: CT Abd/Pelvis - IV Contrast Only; Complete Time: 20:29 cp 08/09 20:29 Interpretation: Report reviewed. cp 08/09 18:39 Order name: IV Saline Lock; Complete Time: 18:39 cp 08/09 18:39 Order name: Labs collected and sent; Complete Time: 18:39 cp Administered Medications: 18:45 Drug: NS 0.9% IV 1000 ml IV at 1 bolus Per protocol; 1000 mL bolus Route: IV; Rate: 1 db bolus; Site: right antecubital; 19:45 Follow up: IV Status: Completed infusion; IV Intake: 1000ml br2 18:47 Drug: diphenhydrAMINE IVP 25 mg IVP once Route: IVP; Site: right antecubital; db 19:15 Follow up: Response: No adverse reaction br2 18:48 Drug: TORadol - Ketorolac IVP 15 mg IVP once Route: IVP; Site: right antecubital; db 19:45 Follow up: Response: No adverse reaction; Pain is decreased br2 18:49 Drug: metoCLOPramide IVP 10 mg IVP once; over 1 to 2 minutes Route: IVP; Site: right db antecubital; 19:15 Follow up: Response: No adverse reaction br2 Disposition Summary: 08/09/24 21:12 Discharge Ordered Notes: Location: Home cp Problem: an ongoing problem cp Symptoms: have improved cp Condition: Stable cp Diagnosis - Encounter for issue of repeat prescription cp - Diarrhea, unspecified cp - Ascariasis, unspecified cp - Headache cp Followup: cp - With: Private Physician - When: 1 week - Reason: Recheck today's complaints Discharge Instructions: - Discharge Summary Sheet cp - Abdominal Pain, Adult cp - Diarrhea, Adult cp - General Headache Without Cause cp Forms: - Medication Reconciliation Form cp - Antibiotic Education cp - Prescription Opioid Use cp - Patient Portal Instructions cp - Leadership Thank You Letter cp Prescriptions: - mebendazole 100 mg Oral tablet,chewable - take 2 tablet ORAL route 2 times per day for 14 days; 56 tablet; Refills: 0, cp Product Selection Permitted - Seroquel 200 mg Oral tablet - take 1 tablet ORAL route once; 30 tablet; Refills: 0, Product Selection cp Permitted Addendum: 08/11/2024 19:59 Co-signature as Attending Physician, Joe Carlson MD I reviewed the patient's care r t provided by the Advanced Practice Provider and agree with the diagnosis and treatment plan. Signatures: Dispatcher [employer] EDMS Bhavesh Arias PA PA cp Steffi Azevedo, RN RN hb Tereza Haddad RN RN db Joe Carlson MD MD rt Betty Canales RN br2 Corrections: (The following items were deleted from the chart) 08/09 18:40 18:40 CBC+H.LAB.BRZ ordered. EDMS EDMS 18:40 18:40 COMPREHENSIVE METABOLIC PANEL+C.LAB.BRZ ordered. EDMS EDMS 18:40 18:40 LIPASE+C.LAB.BRZ ordered. EDMS EDMS 18:40 18:40 Urinalysis+U.LAB.BRZ ordered. EDMS EDMS 18:41 18:40 Fecal Leukocyte Stain+BA.LAB.BRZ ordered. EDMS EDMS 18:41 18:40 Ova and Parasites+MR.LAB.BRZ ordered. EDMS EDMS 18:41 18:40 Rotavirus Antigen+BA.LAB.BRZ ordered. EDMS EDMS 18:41 18:40 Stool Culture+BA.LAB.BRZ ordered. EDMS EDMS 18:41 18:40 C.difficile GDH Ag \T\ Toxin AB+LAB.BRZ ordered. EDMS EDMS 19:09 19:09 URINE DRUG SCREEN+UC.LAB.BRZ ordered. EDMS EDMS 08/10 20:20 08/09 18:45 Associated signs and symptoms: Pertinent positives: dizziness, headache, cp Pertinent negatives: blood in stools, constipation, fever, shortness of breath, vomiting, cp
--- NOTE | 2024-08-09 21:12 | ER ---
Nurse's Notes [facility] Name: Roni Cameron Age: 34 yrs Sex: Male : 1990 Arrival Date: 08/09/2024 Time: 18:05 Bed 20 Private MD: Diagnosis: Encounter for issue of repeat prescription;Diarrhea, unspecified;Ascariasis, unspecified;Headache Presentation: 08/09 18:16 Chief complaint: RUQ pain, N/D, headache, and body aches x 3 days. Coronavirus screen: hb At this time, the client does not indicate any symptoms associated with coronavirus-19. Ebola Screen: No symptoms or risks identified at this time. Initial Sepsis Screen: Does the patient meet any 2 criteria? No. Patient's initial sepsis screen is negative. Does the patient have a suspected source of infection? No. Patient's initial sepsis screen is negative. Risk Assessment: Do you want to hurt yourself or someone else? Patient reports no desire to harm self or others. Onset of symptoms was August 07, 2024. 18:16 Method Of Arrival: Ambulatory hb 18:16 Acuity: EMILY 3 hb Historical: - Allergies: 18:17 Ceclor; hb - Home Meds: 18:17 Geodon Oral [Active]; Seroquel Oral [Active]; Trazodone Oral [Active]; hb - PMHx: 18:17 Bipolar disorder; gastritis; GERD; PTSD; Schizophrenia; hb - PSHx: 18:17 Cholecystectomy; hb - Immunization history:: Adult Immunizations up to date. - Infectious Disease History:: Denies. - Social history:: Smoking status: Patient denies any tobacco usage or history of. Screenin:[address] [facility] ED Fall Risk Assessment (Adult) History of falling in the last 3 months, db including since admission No falls in past 3 months (0 pts) Confusion or Disorientation No (0 pts) Intoxicated or Sedated No (0 pts) Impaired Gait No (0 pts) Mobility Assist Device Used No (0 pt) Altered Elimination No (0 pt) Score/Fall Risk Level 0 - 2 = Low Risk Oriented to surroundings, Maintained a safe environment. Abuse screen: Denies threats or abuse. Denies injuries from another. Nutritional screening: No deficits noted. Tuberculosis screening: No symptoms or risk factors identified. Assessment: 18:28 Reassessment: Patient appears in no apparent distress at this time. Patient and/or db family updated on plan of care and expected duration. Pain level reassessed. Patient is alert, oriented x 3, equal unlabored respirations, skin warm/dry/pink. General: Appears in no apparent distress. comfortable, Behavior is calm, cooperative. Pain: Complains of pain in abdomen. Neuro: Level of Consciousness is awake, alert, obeys commands, Oriented to person, place, time, situation. Respiratory: Airway is patent Respiratory effort is even, unlabored, Respiratory pattern is regular, symmetrical. GI: Abdomen is flat, Bowel sounds present X 4 quads. Abd is soft Abdomen is tender to palpation in right upper quadrant Reports nausea, vomiting. 18:54 Reassessment: Patient appears in no apparent distress at this time. Patient and/or db family updated on plan of care and expected duration. Pain level reassessed. Patient is alert, oriented x 3, equal unlabored respirations, skin warm/dry/pink. PATIENT INSTRUCTED TO COLLECT URINE AND STOOL SPECIMEN. 19:05 Reassessment: Patient and/or family updated on plan of care and expected duration. Pain br2 level reassessed. Patient is alert, oriented x 3, equal unlabored respirations, skin warm/dry/pink. Patient states feeling better. Patient states symptoms have improved. Vital Signs: 18:16 BP 114 / 90; Pulse 100; Resp 16; Temp 98(O); Pulse Ox 96% on R/A; Weight 79.38 kg; hb Height 5 ft. 9 in. ; Pain 8/10; 18:45 BP 136 / 99; Pulse 79; Resp 18; Pulse Ox 94% on R/A; db 20:30 BP 150 / 87; Pulse 76; Resp 18 S; Pulse Ox 98% on R/A; Pain 0/10; br2 18:16 Body Mass Index 25.84 (79.38 kg, 175.26 cm) hb 18:16 Pain Scale: Adult hb 20:30 Pain Scale: Adult br2 ED Course: 18:08 Patient arrived in ED. im 18:13 Emerson Haddad, OLI is Primary Nurse. db 18:14 Bhavesh Arias PA is PHCP. cp 18:14 Joe Carlson MD is Attending Physician. cp 18:17 Triage completed. hb 18:19 Arm band placed on. hb 18:28 Patient has correct armband on for positive identification. Bed in low position. Call db light in reach. Side rails up X 1. Pulse ox on. NIBP on. Warm blanket given. Pillow given. 18:34 Inserted saline lock: 20 gauge in right antecubital area, using aseptic technique. db Blood collected. Flushed with 10 mL NS. 18:45 Initial lab(s) drawn, by me, sent to lab. db 19:00 Report received from received from emerson. br2 19:37 Betty Canales, RN is Primary Nurse. br2 20:10 CT Abd/Pelvis - IV Contrast Only In Process Unspecified. EDMS 20:28 UDS Sent. br2 20:28 CDIFF Sent. br2 20:28 Fecal Leukocyte Stain Sent. br2 20:29 Ova And Parasites Sent. br2 20:29 Rotavirus Antigen Sent. br2 20:29 Stool Culture Sent. br2 21:17 IV discontinued, intact, bleeding controlled, No redness/swelling at site. Pressure sa1 dressing applied. 21:21 Provided Education on: DISCHARGE. br2 21:21 No provider procedures requiring assistance completed. br2 21:22 intact, bleeding controlled, No redness/swelling at site. Pressure dressing applied. br2 Administered Medications: 18:45 Drug: NS 0.9% IV 1000 ml IV at 1 bolus Per protocol; 1000 mL bolus Route: IV; Rate: 1 db bolus; Site: right antecubital; 19:45 Follow up: IV Status: Completed infusion; IV Intake: 1000ml br2 18:47 Drug: diphenhydrAMINE IVP 25 mg IVP once Route: IVP; Site: right antecubital; db 19:15 Follow up: Response: No adverse reaction br2 18:48 Drug: TORadol - Ketorolac IVP 15 mg IVP once Route: IVP; Site: right antecubital; db 19:45 Follow up: Response: No adverse reaction; Pain is decreased br2 18:49 Drug: metoCLOPramide IVP 10 mg IVP once; over 1 to 2 minutes Route: IVP; Site: right db antecubital; 19:15 Follow up: Response: No adverse reaction br2 Medication: 18:28 VIS not applicable for this client. db Intake: 19:45 IV: 1000ml; Total: 1000ml. br2 Outcome: 21:12 Discharge ordered by . cp 21:21 Discharged to home ambulatory, br2 21:21 Condition: stable 21:21 Discharge instructions given to patient, Instructed on discharge instructions, follow up and referral plans. medication usage, Demonstrated understanding of instructions, follow-up care, medications, Prescriptions given X 2, 21:22 Patient left the ED. br2 Signatures: Dispatcher [employer] EDMS Bhavesh Arias PA PA cp Baxter, Heather, RN RN hb Emerson Haddad, RN RN db Cheryl Walden Sultan sa1 Betty Canales RN RN br2
[2024-08-09 21:32] VITALS: TEMP 98
[2024-08-09 21:50] VITALS: BP 150/87; O2SAT 98
[2024-08-09 22:07] LABS: C.diff Antigen/Toxin Ag neg : Tox neg (NEG : NEG); CDIFF INTERNAL NEG CONTROL White Background (WHITE BKGD); STOOL CONSISTENCY Formed/Solid (soft)
== END 2024-08-09 21:22 | disposition home or self-care (01) ==
LOC: ER 18:05
DX: Z76.0 Encounter for issue of repeat prescription (principal); B77.9 Ascariasis, unspecified; R19.7 Diarrhea, unspecified; R51.9 Headache, unspecified
CPT/HCPCS: 36415; 74177; 80053; 80307; 81001; 83690; 85025; 87045; 87046; 87177; 87209; 87324; 87425; 89055; 96361; 96374; 96375; 99284; J1200; J2765; J7030; Q9967

== ENCOUNTER 2024-09-24 16:14 | Emergency (ER) | payer SELFPAY ==
--- OUTSIDE RECORDS SUMMARY | 2024-09-24 16:18 | XMS REPORT | Continuity of Care Document ---
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 LYMPH % (test code = 736-9) 21.1 % MONO % (test code = 5905-5) 9.9 % EOS % (test code = 713-8) 3.3 % BASO % (test code = 706-2) 0.9 % GRAN MAT x10^3(ANC) (test code = 9340856548) 5.50 10*3/uL 1.99-6.95 IMM GRAN x10^3 (test code = 3797335110) 0.04 10*3/uL 0.00-0.06 LYMPH x10^3 (test code = 731-0) 1.80 10*3/uL 1.09-3.23 MONO x10^3 (test code = 742-7) 0.85 10*3/uL 0.36-1.02 EOS x10^3 (test code = 711-2) 0.28 10*3/uL 0.06-0.53 BASO x10^3 (test code = 704-7) 0.08 10*3/uL 0.01-0.09 Lab Interpretation (test code = 89792-7) Abnormal [facility] Notes Date/Time Note Provider Source 2024-05-30 18:41:18 Patient given discharge instructions on not taking medication as directed. Pt let ER ambulatory, no signs of distress. T [facility] 2024-05-30 17:48:40 Patient states: "I'm out of my psych meds. I've been out of them for a month. I missed my appt." Seroquel 400 mg QHS, Kyleigh Fritz RN [facility] 2024-05-29 23:21:08 Walked pt to bathroom to give urine sample and change into paper scrubs. Pt abruptly walked out of bathroom grabbed his belongings, yelled, "fuck this place" and walked out of ER. [facility] 2024-05-29 22:59:06 Pt states he is schizophrenic and he is "losing his mind". "I think I am being poisoned." Pt takes Seroquel but hasn't taken it in a few weeks. Hear voices. States the voices are "harassing me" Pt states he wants to be admitted to psychiatric hospital. Pt isn't sure if he is suicidal. NO plan. Maria Eugenia Milner RN [facility] 2024-05-29 22:48:00 [facility] Emergency Department Note Patient Name: Diana Cameron Date of : 1990 33 year old male Treatment Room: [place] [address] Primary Care Physician: PATIENT DOES NOT HAVE A PCP Patient Escorted by: Self [9] Mode of Arrival: Personal means [1] EMS Treatment Prior to ED Arrival: INVESTMENT ADVISOR treatment: None Travel and Exposure Screening: Symptoms [...] Procedures CBC WITH DIFF COMP. METABOLIC PANEL (46154) URINE DRUG (IMMUNOASSAY) - COMPREHENSIVE DRUG SCREEN [...] Electronically signed by: Rehana Isaacs DO 05/29/242322 [facility] 2024-05-06 22:51:39 Pt called multiple times from by registration and radiology staff without answer. Pt LWBS. Pearl Gudino RN [facility] 2024-05-06 21:07:38 Patient arrived ambulatory c/o of wrist pain after a slip and fall today Vivian Mohamud RN [facility] 2024-05-06 21:00:00 [facility] Emergency Department Note Patient Name: Diana Cameron Date of : 1990 33 year old male Treatment Room: [facility] ED [facility]IA Primary Care Physician: PATIENT [...] This patient relates that he was at [facility] today at approximate 4:30 when he slipped [...] signed by: Sanchez Lunsford DO 05/06/247 T [facility] 2024-05-04 12:38:06 Patient dc home. Follow up with pcp as needed. Verbalized understanding. Signed dc paper work. [facility] 2024-05-04 10:35:20 Patient to ED for sore throat and body aches x 4 days. T Zaid Bustillo RN [facility] 2024-03-12 12:27:03 Pt c/o sore throat, headache, cough, congestion, runny nose, fatigue. States that it is the same symptoms that he has had for weeks now and has been seen and treated in ER twice for same complaints. Denies pain in triage. [facility] 2024-03-12 12:22:00 [facility] Emergency Department Note Patient Name: Diana Cameron Date of : 1990 33 year old male Treatment Room: Room/bed info not found Primary Care Physician: PATIENT DOES NOT HAVE A PCP Patient Escorted by: Self [9] Mode of Arrival: Personal means [1] EMS Treatment Prior to ED Arrival: INVESTMENT ADVISOR treatment: Other (comment) INVESTMENT ADVISOR treatment comments: "throat spray" Travel and Exposure [...] signed by: Martin Griffin MD 03/12/24 1349 [facility] 2024-02-27 11:29:52 Written/verbal d/c instructions, out of er no distress LIAT Luisa Torres RN [facility] 2024-02-27 11:17:00 Not in lobby [facility] 2024-02-27 10:30:52 Pt arrived via private car with c/o sore throat x1 week Maritza Turner RN [facility] 2024-02-27 10:20:00 Images from the original note were not included. [facility] Emergency Department Note Patient Name: Diana Cameron Date of : 1990 33 year old male Treatment Room: [facility] ED [facility] Primary Care Physician: PATIENT DOES NOT HAVE [...] by: Rocio Patel MD 02/27/24 1059 T [facility] 2024-02-20 13:35:23 Pt discharged with diagnosis [...] No ataxia noted. Accompanied by family member. [facility] Shruthi Caballero RN [facility] 2024-02-20 11:51:57 C/o of cough and congestion that started last week with nausea. Complaining of right ear ringing that started months ago and got worse since coughing. Vivian Mohamud RN [facility] 2024-01-09 13:54:42 PT D/C home. GCS15, VS stable, no ataxia noted. Given two prescriptions and D/C paperwork. Pt ambulatory at time of discharge. Pt educated on med refill, chest pain, med usage, follow up care, s/s worsening condition. Pt verbalized understanding. NG MACHINE BACK TENDER Nicolasa Castillo RN [facility] 2024-01-09 12:46:53 Pt arrived via private car with c/o being "out of my psych meds" and middle chest wall pain that started "probably 2 or 3 months ago". EKG preformed in triage. NG MACHINE BACK TENDER Maritza Turner RN [facility] 2024-01-09 12:41:00 Associated Order(s): EKG-12 Lead ROUTINE ONCE Pre-Procedure Diagnose(s): Chest pain in adult Post-Procedure Diagnose(s): Chest pain in adult [facility] Emergency Department Note Patient Name: Diana [...] psych meds will refill and refer to [facility] Problems Addressed: Chest pain in adult: Details: [...] signed by: Rocio Patel MD 01/09/24 1306 [facility]
[2024-09-24] MEDS ORDERED: IBUPROFEN 400 MG TAB ONE (16:29)
[2024-09-24 17:06] LABS: SARS-CoV-2 Antigen CONTROL BLUE LINE VIS/BG OK; SARS-CoV-2 Antigen Rapid Res Negative (Negative)
--- NOTE | 2024-09-24 17:19 | EDPHYS ---
Physician Documentation [facility] Name: Roni Cameron Age: 34 yrs Sex: Male : 1990 Arrival Date: 09/24/2024 Time: 16:14 Bed IW1 Private MD: ED Physician Shahab Levy HPI: 09/24 16:35 This 34 yrs old Male presents to ER via Ambulatory with complaints of Pain All Over, cp Wants cheaper worm medication, wants his psych meds refilled. 16:35 Patient is a 34-year-old male who presents to the emergency department with complaints cp of generalized pain, body aches, cough and sore throat for the past 3 days. Patient complains of subjective fever. Patient is also here requesting ivermectin to treat GI worm infestation. Patient has presented multiple times to this emergency department requesting parasitic worm treatment and each time reports that he is unable to afford the medications. Patient is also requesting refill of his psych medications to include Seroquel, Trazodone, Geodon and Hydroxyzine but is unable to provide the dosage of each medications. Historical: - Allergies: 16:24 Ceclor; ko1 16:24 Amoxicillin; ko1 - Home Meds: 16:24 Geodon Oral [Active]; Seroquel Oral [Active]; Trazodone Oral [Active]; Hydroxyzine Oral ko1 [Active]; - PMHx: 16:24 Bipolar disorder; gastritis; GERD; PTSD; Schizophrenia; ko1 - PSHx: 16:24 Cholecystectomy; ko1 - Immunization history:: Adult Immunizations unknown. - Infectious Disease History:: Denies. - Social history:: Smoking status: Patient/guardian denies using tobacco, but has a distant history of tobacco abuse. ROS: 16:40 Constitutional: History per HPI cp 16:40 ENT: Positive for sore throat, Negative for drainage from ear(s), ear pain, difficulty cp swallowing, difficulty handling secretions, 16:40 Cardiovascular: Negative for chest pain, palpitations, 16:40 Respiratory: Positive for cough, Negative for shortness of breath, wheezing, 16:40 Abdomen/GI: Negative for abdominal pain, vomiting, diarrhea, constipation, 16:40 Neuro: Negative for altered mental status, dizziness, headache, weakness, 16:40 All other systems are negative, Exam: 16:45 Constitutional: The patient appears in no acute distress, alert, awake, cp non-diaphoretic, non-toxic, well developed, well nourished, 16:45 Head/Face: Normocephalic, atraumatic. cp 16:45 Eyes: Periorbital structures: appear normal, Conjunctiva: normal, no exudate, Sclera: no appreciated abnormality, Lids and lashes: appear normal, bilaterally, 16:45 ENT: External ear(s): are unremarkable, Nose: is normal, Mouth: Lips: moist, Oral mucosa: moist, Posterior pharynx: Airway: no evidence of obstruction, patent, Tonsils: no enlargement, no exudate, swelling, is not appreciated, erythema, that is mild, exudate, is not appreciated, 16:45 Neck: ROM/movement: Meningeal signs: are not present, nuchal rigidity, is not appreciated, 16:45 Chest/axilla: Inspection: normal, 16:45 Cardiovascular: Rate: normal, Rhythm: regular, 16:45 Respiratory: the patient does not display signs of respiratory distress, Respirations: normal, no use of accessory muscles, no retractions, labored breathing, is not present, Breath sounds: are clear throughout, no decreased breath sounds, no stridor, no wheezing, 16:45 Abdomen/GI: Exam negative for discomfort, distension, guarding, Inspection: abdomen appears normal, Vital Signs: 16:20 BP 127 / 93; Pulse 94; Resp 16; Temp 97.7; Pulse Ox 98% ; ko1 MDM: 16:45 Differential diagnosis: viral Infection, bacterial infection, URI, bronchitis, cp tonsillitis. 17:18 Medical Screening Exam initiated cp 17:18 Data reviewed: vital signs, nurses notes, lab test result(s), and as a result, I will cp discharge patient. 17:18 Counseling: I had a detailed discussion with the patient and/or guardian regarding the cp historical points, exam findings, and any diagnostic results supporting the discharge/admit diagnosis, lab results, to return to the emergency department if symptoms worsen or persist or if there are any questions or concerns that arise at home. 09/24 16:31 Order name: Strep cp 09/24 16:31 Order name: SARS RAPID cp 09/24 16:31 Order name: Influenza Screen (a \T\ B) cp 09/24 17:17 Order name: Throat Culture EDMS Administered Medications: 16:36 Drug: Ibuprofen PO 800 mg PO once Route: PO; ko1 18:02 Follow up: Response: No adverse reaction ll1 Disposition: 19:51 Co-signature as Attending Physician, Shahab Levy MD I reviewed the patient's care rn provided by the Advanced Practice Provider and agree with the diagnosis and treatment plan. Disposition Summary: 09/24/24 17:18 Discharge Ordered Notes: Location: Home cp Problem: new cp Symptoms: have improved cp Condition: Stable cp Diagnosis - Encounter for issue of repeat prescription cp - Ascariasis, unspecified cp - Cough cp - Acute pharyngitis, unspecified cp Followup: cp - With: Private Physician - When: 2 - 3 days - Reason: Worsening of condition Discharge Instructions: - Discharge Summary Sheet cp - Medicine Refill at the Emergency Department cp - Pinworms cp - Basics of Medicine Management cp - Cough, Adult cp Forms: - Medication Reconciliation Form cp - Antibiotic Education cp - Prescription Opioid Use cp - Patient Portal Instructions cp - Leadership Thank You Letter cp Prescriptions: - Bromfed DM 2-30-10 mg/5 mL Oral syrup - administer 10 milliliter ORAL route every 6 hours as needed for cough; 240 cp milliliter; Refills: 0, Product Selection Permitted - ivermectin 3 mg Oral tablet - take 5 tablet ORAL route once as a single dose; 5 tablet; Refills: 0, Product cp Selection Permitted - Seroquel XR 300 mg Oral Tablet, Extended Release 24 hr - take 1 tablet ORAL route every day at bedtime; 30 tablet; Refills: 0, Product cp Selection Permitted - hydroxyzine HCl 25 mg Oral tablet - take 1 tablet ORAL route 3-4 times daily; 60 tablet; Refills: 0, Product cp Selection Permitted - Zofran 4 mg Oral Tablet - take 1 tablet ORAL route every 12 hours As needed; 20 tablet; Refills: 0, cp Product Selection Permitted - Zithromax Z-Paul 250 mg Oral Tablet - take 1 tablet ORAL route as directed for 5 days Day 1 - take two (2) tablets cp one time. Day 2, 3, 4 , 5 take one (1) tablet once daily.; 6 tablet; Refills: 0, Product Selection Permitted Signatures: Dis[facility] LevyShahab MD MD rn Page, Corey, PA PA cp Cinthia Abad RN RN ko1 Anna Marie Celis RN ll1 Corrections: (The following items were deleted from the chart) 17:01 16:52 Constitutional: The patient appears in no acute distress, alert, awake, cp non-toxic, well developed, well nourished, cp 17:01 16:52 Head/face: Exam is negative for obvious evidence of injury or deformity, Noted is cp erythema, swelling, that is mild, of the right ear, tenderness, skin warm to touch. no observable injury. cp 17: 16:52 Eyes: Periorbital structures: appear normal, Conjunctiva: normal, no exudate, no cp injection, Sclera: no appreciated abnormality, Lids and lashes: appear normal, bilaterally, cp 17: 16:52 ENT: Ear canal(s): are normal, clear, TM's: dullness, bilaterally, Nose: is cp normal, Mouth: Lips: moist, Oral mucosa: pink and intact, moist, Posterior pharynx: Airway: no evidence of obstruction, patent, cp 17: 16:52 Neck: ROM/movement: Meningeal signs: are not present, cp cp 17: 16:52 Chest/axilla: Inspection: normal, cp cp 17: 16:52 Cardiovascular: Rate: normal, cp cp 17: 16:52 Respiratory: the patient does not display signs of respiratory distress, cp Respirations: normal, no use of accessory muscles, no retractions, labored breathing, is not present, Breath sounds: are clear throughout, no decreased breath sounds, no stridor, no wheezing, cp 17: 16:52 Abdomen/GI: Inspection: abdomen appears normal, Palpation: abdomen is soft and cp non-tender, in all quadrants, cp 17:03 16:56 Head/face: Exam is negative for obvious evidence of injury or deformity, Noted is cp erythema, that is mild, of the right ear, swelling, that is mild, of the right ear, tenderness, that is mild, exam of right ear negative for any injury, skin intact with no open wounds. cp 17:03 16:56 Eyes: Periorbital structures: appear normal, Conjunctiva: normal, no exudate, no cp injection, Sclera: no appreciated abnormality, Lids and lashes: appear normal, bilaterally, cp 17:03 16:56 ENT: Ear canal(s): are normal, clear, TM's: bulging, is not appreciated, cp bilaterally, erythema, is not appreciated, bilaterally, Nose: is normal, Mouth: Lips: moist, Oral mucosa: pink and intact, moist, Posterior pharynx: Airway: no evidence of obstruction, patent, cp 17:03 16:56 Neck: ROM/movement: is normal, is supple, no meningismus, no nuchal rigidity, cp cp 17: 16:56 Chest/axilla: Inspection: normal, cp cp 17: 16:56 Cardiovascular: Rate: normal, cp cp 17: 16:56 Respiratory: the patient does not display signs of respiratory distress, cp Respirations: normal, no use of accessory muscles, no retractions, labored breathing, is not present, Breath sounds: are clear throughout, no decreased breath sounds, no stridor, no wheezing, cp 17:03 16:56 Abdomen/GI: Inspection: abdomen appears normal, Palpation: abdomen is soft and cp non-tender, in all quadrants, cp 09/25 16:26 11 16:35 Patient is a 34-year-old male who presents to the emergency department with cp complaints of generalized pain, body aches, cough and sore throat for the past 3 days. Patient complains of subjective fever. Patient is also here requesting ivermectin to treat GI worm infestation. Patient has presented multiple times to this emergency department requesting parasitic worm treatment and each time reports that he is unable to afford the medications. Patient is also requesting refill of his psych medications to include Seroquel, trazodone and hydroxyzine but is unable to provide the dosage of each medications. cp
--- NOTE | 2024-09-24 17:19 | ER ---
Nurse's Notes [facility] Name: Roni Cameron Age: 34 yrs Sex: Male : 1990 Arrival Date: 09/24/2024 Time: 16:14 Bed IW1 Private MD: Diagnosis: Encounter for issue of repeat prescription;Ascariasis, unspecified;Cough;Acute pharyngitis, unspecified Presentation: 09/24 16:20 Chief complaint: Patient states: needs meds refilled, body aches, lymph nodes swollen, ko1 stomach ache for past few months. Coronavirus screen: At this time, the client does not indicate any symptoms associated with coronavirus-19. Ebola Screen: No symptoms or risks identified at this time. Initial Sepsis Screen: Does the patient meet any 2 criteria? No. Patient's initial sepsis screen is negative. Does the patient have a suspected source of infection? No. Patient's initial sepsis screen is negative. Risk Assessment: Do you want to hurt yourself or someone else? Patient reports no desire to harm self or others. Onset of symptoms was September 24, 2024. 16:20 Method Of Arrival: Ambulatory ko1 16:20 Acuity: EMILY 3 ko1 Triage Assessment: 16:24 General: Appears in no apparent distress. Behavior is calm, cooperative, appropriate ko1 for age. Pain: Complains of pain in generalized body aches, sore throat, abdominal pain. Historical: - Allergies: 16:24 Ceclor; ko1 16:24 Amoxicillin; ko1 - Home Meds: 16:24 Geodon Oral [Active]; Seroquel Oral [Active]; Trazodone Oral [Active]; Hydroxyzine Oral ko1 [Active]; - PMHx: 16:24 Bipolar disorder; gastritis; GERD; PTSD; Schizophrenia; ko1 - PSHx: 16:24 Cholecystectomy; ko1 - Immunization history:: Adult Immunizations unknown. - Infectious Disease History:: Denies. - Social history:: Smoking status: Patient/guardian denies using tobacco, but has a distant history of tobacco abuse. Screenin:54 [facility] ED Fall Risk Assessment (Adult) History of falling in the last 3 months, ll1 including since admission No falls in past 3 months (0 pts) Confusion or Disorientation No (0 pts) Intoxicated or Sedated No (0 pts) Impaired Gait No (0 pts) Mobility Assist Device Used No (0 pt) Altered Elimination No (0 pt) Score/Fall Risk Level 0 - 2 = Low Risk Maintained a safe environment, Hourly rounding (assess needs \T\ fall precautionary measures) done. Abuse screen: Denies threats or abuse. Nutritional screening: No deficits noted. Tuberculosis screening: No symptoms or risk factors identified. Assessment: 17:54 Reassessment: No changes from previously documented assessment. Patient and/or family ll1 updated on plan of care and expected duration. Pain level reassessed. Patient is alert, oriented x 3, equal unlabored respirations, skin warm/dry/pink. Vital Signs: 16:20 BP 127 / 93; Pulse 94; Resp 16; Temp 97.7; Pulse Ox 98% ; ko1 ED Course: 16:17 Patient arrived in ED. im 16:20 Bhavesh Arias PA is PHCP. cp 16:20 Shahab Levy MD is Attending Physician. cp 16:24 Triage completed. ko1 16:24 Arm band placed on right wrist. Patient placed in waiting room, Patient notified of ko1 wait time. 16:35 Influenza Screen (a \T\ B) Sent. ko1 16:35 SARS RAPID Sent. ko1 16:35 Strep Sent. ko1 18:01 Patient has correct armband on for positive identification. Provided Education on: ll1 return to ED for worsening symptoms. 18:01 No provider procedures requiring assistance completed. Patient did not have IV access ll1 during this emergency room visit. Administered Medications: 16:36 Drug: Ibuprofen PO 800 mg PO once Route: PO; ko1 18:02 Follow up: Response: No adverse reaction ll1 Medication: 18:02 VIS not applicable for this client. ll1 Outcome: 17:18 Discharge ordered by MD. cp 17:54 Patient left the ED. ll1 18:01 Discharged to home ambulatory, ll1 18:01 Condition: stable 18:01 Discharge instructions given to patient, Instructed on discharge instructions, follow up and referral plans. no drinking with medication, no driving heavy equipment, medication usage, Demonstrated understanding of instructions, follow-up care, medications, Prescriptions given X x 6 Signatures: Bhavesh Arias PA PA cp Lewis, Lynsay, RN RN 1 Cinthia Abad RN RN ko1 Cherly Walden im
[2024-09-24 17:58] VITALS: BP 127/93; TEMP 97.7; O2SAT 98
== END 2024-09-24 17:54 | disposition home or self-care (01) ==
LOC: ER 16:14
DX: Z76.0 Encounter for issue of repeat prescription (principal); B77.9 Ascariasis, unspecified; R05.9 Cough, unspecified; J02.9 Acute pharyngitis, unspecified; F20.9 Schizophrenia, unspecified
CPT/HCPCS: 36415; 87070; 87081; 87804; 87811; 99283

== ENCOUNTER 2025-08-30 19:45 | Emergency (ER) | payer SELFPAY ==
[2025-08-30] MEDS ORDERED: ONDANSETRON 4 MG/2 ML VIAL ONE (20:15)
[2025-08-30] MEDS ORDERED: MAGNES/ALUMIN/SIMET 30ML UCUP ONE (20:16)
[2025-08-30] MEDS ORDERED: NA CHLORIDE 0.9% 1,000 ML ONE (20:16)
[2025-08-30] MEDS ORDERED: LIDOCAINE VISCOUS 2% 10ML ORAL SOLN ONE (20:18)
[2025-08-30 20:33] LABS: Absolute Lymphocytes (CBC) 1.9 K/uL (0.7-4.9); Hematocrit 48.5 % (39.6-49.0); Hemoglobin 16.4 g/dL (13.6-17.9); MCH 28.4 pg (27.0-35.0); MCHC 33.8 g/dL (32.0-36.0); MCV 84.1 fL (80-100); MPV 7.8 fL (7.6-11.3); Nucleated RBC Absolute Count 0.0 (0-0); Nucleated Red Blood Cells % 0.0 % (0-0); RBC Red Blood Cell Count 5.77 M/uL (4.33-5.43); White Blood Count 9.80 thou/uL (4.3-10.9)
[2025-08-30 20:45] LABS: Influenza A Ag Negative; Influenza B Ag Negative; SARS-CoV-2 Antigen Rapid Res Negative (Negative)
[2025-08-30 20:51] LABS: ALT/SGPT 83.0 U/L (16-61); AST/SGOT 32.0 U/L (15-37); Albumin 4.6 g/dL (3.4-5.0); Albumin/Globulin Ratio 1.3 (1.1-1.8); Alkaline Phosphatase 114.0 U/L (45-117); Anion Gap 12.5 mEq/L (5.0-15.0); BUN Blood Urea Nitrogen 10.0 mg/dL (7-18); Globulin 3.6 g/dL (2.3-3.5); Glucose Level 131.0 mg/dL (74-106); Lipase 39.0 U/L (13-75); Potassium 3.5 mEq/L (3.5-5.1)
--- NOTE | 2025-08-30 20:58 | ER ---
Nurse's Notes [facility] Name: Roni Cameron Age: 35 yrs Sex: Male : 1990 Arrival Date: 08/30/2025 Time: 19:45 Bed 8 Private MD: Diagnosis: Gastritis Presentation: 08/30 19:59 Chief complaint: Patient states: DIARRHEA, N/V, RT LOWER ABD PAIN X1 WEEK. REPORTS WENT dd2 TO [facility] ON SUNDAY. Coronavirus screen: At this time, the client does not indicate any symptoms associated with coronavirus-19. Ebola Screen: No symptoms or risks identified at this time. Initial Sepsis Screen: Does the patient meet any 2 criteria? No. Patient's initial sepsis screen is negative. Does the patient have a suspected source of infection? No. Patient's initial sepsis screen is negative. Risk Assessment: Do you want to hurt yourself or someone else? Patient reports no desire to harm self or others. Onset of symptoms was August 23, 2025. 19:59 Method Of Arrival: Ambulatory dd2 19:59 Acuity: EMILY 3 dd2 Triage Assessment: 20:00 General: Appears in no apparent distress. uncomfortable, Behavior is cooperative, dd2 appropriate for age, agitated. Pain: Complains of pain in right lower quadrant, HEAD, CHEST. Cardiovascular: Reports chest pain. GI: Reports lower abdominal pain, diarrhea, nausea, vomiting. Historical: - Allergies: 20:00 Amoxicillin; dd2 20:00 Ceclor; dd2 - PMHx: 20:00 Bipolar disorder; gastritis; GERD; PTSD; Schizophrenia; dd2 - PSHx: 20:00 Cholecystectomy; dd2 - Immunization history:: Adult Immunizations up to date. - Infectious Disease History:: Denies. - Social history:: Smoking status: Reported history of juuling and/or vaping. Patient uses street drugs, marijuana. Screenin:29 [facility] ED Fall Risk Assessment (Adult) History of falling in the last 3 months, bm8 including since admission No falls in past 3 months (0 pts) Confusion or Disorientation No (0 pts) Intoxicated or Sedated No (0 pts) Impaired Gait No (0 pts) Mobility Assist Device Used No (0 pt) Altered Elimination No (0 pt) Score/Fall Risk Level 0 - 2 = Low Risk Oriented to surroundings, Maintained a safe environment, Educated pt \T\ family on fall prevention, incl call for assistance when getting out of bed, Assessed \T\ reinforced patient's understanding of fall precautions, Hourly rounding (assess needs \T\ fall precautionary measures) done, Used ambulatory aids as needed (educated on \T\ assisted with), Used gait belt as appropriate. Abuse screen: Denies threats or abuse. Nutritional screening: No deficits noted. Tuberculosis screening: No symptoms or risk factors identified. Assessment: 20:25 Reassessment: Patient appears in no apparent distress at this time. Patient and/or bm8 family updated on plan of care and expected duration. Pain level reassessed. Patient is alert, oriented x 3, equal unlabored respirations, skin warm/dry/pink. General: Appears in no apparent distress. comfortable, Behavior is cooperative, appropriate for age, anxious. GI: Abdomen is round non-distended, Bowel sounds present X 4 quads. Reports diarrhea, nausea, Pain is 8 out of 10 on a pain scale. vomiting. 21:04 Reassessment: Patient appears in no apparent distress at this time. Patient and/or bm8 family updated on plan of care and expected duration. Pain level reassessed. Patient is alert, oriented x 3, equal unlabored respirations, skin warm/dry/pink. informed provider that pt is requesting more pain medication, no new orders recieved Patient states symptoms have not improved. Vital Signs: 19:59 BP 158 / 112; Pulse 95; Resp 18; Temp 98.1; Pulse Ox 99% on R/A; Weight 90.72 kg; Pain dd2 10/10; 20:25 Pulse 64; Resp 17; Temp 98.1; Pulse Ox 98% ; Pain 8/10; bm8 21:04 BP 156 / 107; Pulse 90; Resp 17; Temp 98.1; Pulse Ox 99% ; Pain 8/10; bm8 19:59 Pain Scale: Adult dd2 20:25 Pain Scale: Adult bm8 21:04 Pain Scale: Adult bm8 [place] Coma Score: 20:25 Eye Response: spontaneous(4). Motor Response: obeys commands(6). Verbal Response: bm8 oriented(5). Total: 15. 21:04 Eye Response: spontaneous(4). Motor Response: obeys commands(6). Verbal Response: bm8 oriented(5). Total: 15. ED Course: 19:46 Patient arrived in ED. im 19:47 Shanice Ellison MD is Attending Physician. sp3 20:00 Triage completed. dd2 20:00 Arm band placed on right wrist. dd2 20:24 EKG done, by ED staff. sa1 20:25 Tyson Ya, RN is Primary Nurse. bm8 20:29 Patient has correct armband on for positive identification. Placed in gown. Bed in low bm8 position. Call light in reach. Side rails up X 1. Adult w/ patient. Client placed on continuous cardiac and pulse oximetry monitoring. NIBP monitoring applied. Pulse ox on. NIBP on. Door closed. Noise minimized. Warm blanket given. Pillow given. Head of bed elevated. 20:29 No provider procedures requiring assistance completed. Initial lab(s) drawn, by , bmAyesha sent to lab. Inserted saline lock: 18 gauge in right antecubital area, using aseptic technique. Blood collected. Flushed with 10 mL NS intact. 20:57 Leni Hammond MD is Referral Physician. sp3 21:04 Provided Education on: post er care. bm8 Administered Medications: 20:30 Drug: GI Cocktail without - (Maalox PO 30 ml, Lidocaine Mucous Membrane 2 % 15 bm8 ml) PO once Route: PO; 21:05 Follow up: Response: No adverse reaction bm8 20:31 Drug: Ondansetron IVP 4 mg IVP once; over 2 minutes Route: IVP; Site: right antecubital;bm8 21:05 Follow up: Response: No adverse reaction bm8 20:31 Drug: NS 0.9% IV 1000 ml IV at 1 bolus Per protocol; to be given as a bolus over 60 bm8 minutes Route: IV; Rate: 1 bolus; Site: right antecubital; 21:05 Follow up: Response: No adverse reaction; IV Status: Completed infusion bm8 Medication: 20:30 VIS not applicable for this client. bm8 Outcome: 20:58 Discharge ordered by . sp3 21:04 Discharged to home ambulatory, with family, bm8 21:04 Condition: stable 21:04 Discharge instructions given to patient, family, Instructed on discharge instructions, follow up and referral plans. no drinking with medication, no driving heavy equipment, medication usage, Demonstrated understanding of instructions, follow-up care, medications, 21:06 Patient left the ED. bm8 Signatures: Shanice Ellison MD MD sp3 Cheryl Walden Brad, RN RN bm8 Sultan Jarrell sa1 KIANA MOLINA RN RN dd2
--- NOTE | 2025-08-30 20:58 | EDPHYS ---
Physician Documentation [facility] Name: Roni Cameron Age: 35 yrs Sex: Male : 1990 Arrival Date: 08/30/2025 Time: 19:45 Bed 8 Private MD: ED Physician Shanice Ellison HPI: 08/30 20:13 This 35 yrs old Male presents to ER via Ambulatory with complaints of nausea, sp3 congestion. 20:13 35-year-old male with history of bipolar disease, known gastritis, PTSD, schizophrenia, sp3 cannabis history now presents with upper respiratory congestion mild cough and nausea. Patient was seen at [facility] 4 days ago which she still has his brace on. They said he they did a full workup and told him that he had gastritis and was discharged on ondansetron ODT which he has not been able to afford. He went there again today but left because of the "longline" and presents here for the same symptoms. He denies headache, fever, neck pain, chest pain, shortness of breath, lower abdominal pain, diarrhea, actual vomiting, melena, known sick contacts, travel history, potential bad known food, or any other signs or symptoms on ROS at this time.. Historical: - Allergies: 20:00 Amoxicillin; dd2 20:00 Ceclor; dd2 - PMHx: 20:00 Bipolar disorder; gastritis; GERD; PTSD; Schizophrenia; dd2 - PSHx: 20:00 Cholecystectomy; dd2 - Immunization history:: Adult Immunizations up to date. - Infectious Disease History:: Denies. - Social history:: Smoking status: Reported history of juuling and/or vaping. Patient uses street drugs, marijuana. ROS: 20:14 Constitutional: Negative for fever, chills, and weight loss, Eyes: Negative for injury, sp3 pain, redness, and discharge, Neck: Negative for injury, pain, and swelling, Cardiovascular: Negative for chest pain, palpitations, and edema, Respiratory: Negative for shortness of breath, cough, wheezing, and pleuritic chest pain, Back: Negative for injury and pain, MS/Extremity: Negative for injury and deformity, Skin: Negative for injury, rash, and discoloration, Neuro: Negative for headache, weakness, numbness, tingling, and seizure, Psych: Negative for depression, anxiety, suicide ideation, homicidal ideation, and hallucinations, Allergy/Immunology: Negative for hives, rash, and allergies, Endocrine: Negative for neck swelling, polydipsia, polyuria, polyphagia, and marked weight changes, Hematologic/Lymphatic: Negative for swollen nodes, abnormal bleeding, and unusual bruising, 20:14 All other systems are negative, Exam: 20:14 Constitutional: This is a well developed, well nourished patient who is awake, alert, sp3 and in no acute distress. Head/Face: Normocephalic, atraumatic. Eyes: Pupils equal round and reactive to light, extra-ocular motions intact. Lids and lashes normal. Conjunctiva and sclera are non-icteric and not injected. Cornea within normal limits. Periorbital areas with no swelling, redness, or edema. ENT: Nares patent. No nasal discharge, no septal abnormalities noted. External auditory canals are clear. Oropharynx with no redness, swelling, or masses, exudates, or evidence of obstruction, uvula midline. Mucous membranes moist. Neck: Trachea midline, no thyromegaly or masses palpated, and no cervical lymphadenopathy. Supple, full range of motion without nuchal rigidity, or vertebral point tenderness. No Meningismus. Chest/axilla: Normal chest wall appearance and motion. Nontender with no deformity. No lesions are appreciated. Cardiovascular: Regular rate and rhythm with a normal S1 and S2. No gallops, murmurs, or rubs. Normal PMI, no JVD. No pulse deficits. Respiratory: Lungs have equal breath sounds bilaterally, clear to auscultation and percussion. No rales, rhonchi or wheezes noted. No increased work of breathing, no retractions or nasal flaring. Abdomen/GI: Soft, non-tender, with normal bowel sounds. No distension or tympany. No guarding or rebound. No evidence of tenderness throughout. Back: No spinal tenderness. No costovertebral tenderness. Full range of motion. Skin: Warm, dry with normal turgor. Normal color with no rashes, no lesions, and no evidence of cellulitis. MS/ Extremity: Pulses equal, no cyanosis. Neurovascular intact. Full, normal range of motion. Neuro: Awake and alert, GCS 15, oriented to person, place, time, and situation. Cranial nerves II-XII grossly intact. Motor strength 5/5 in all extremities. Sensory grossly intact. Cerebellar exam normal. Normal gait. Psych: Awake, alert, with orientation to person, place and time. Behavior, mood, and affect are within normal limits. Vital Signs: 19:59 BP 158 / 112; Pulse 95; Resp 18; Temp 98.1; Pulse Ox 99% on R/A; Weight 90.72 kg; Pain dd2 10/10; 20:25 Pulse 64; Resp 17; Temp 98.1; Pulse Ox 98% ; Pain 8/10; bm8 21:04 BP 156 / 107; Pulse 90; Resp 17; Temp 98.1; Pulse Ox 99% ; Pain 8/10; bm8 19:59 Pain Scale: Adult dd2 20:25 Pain Scale: Adult bm8 21:04 Pain Scale: Adult bm8 [place] Coma Score: 20:25 Eye Response: spontaneous(4). Motor Response: obeys commands(6). Verbal Response: bm8 oriented(5). Total: 15. 21:04 Eye Response: spontaneous(4). Motor Response: obeys commands(6). Verbal Response: bm8 oriented(5). Total: 15. MDM: 19:53 Medical Screening Exam initiated sp3 20:14 Data reviewed: vital signs, nurses notes, old medical records, lab test result(s). ED sp3 course: 35-year-old male with PMH above now with benign symptoms of nausea and upper respiratory symptoms none which are objectively observable. Differential diagnosis includes viral illness, cannabis related nausea, gastritis, among others. I am not highly suspicious of sepsis, shock, ACS, GI bleed, or any other critical process. Heart rate is in the upper 90s and patient states he feels "dry". We will give normal saline 1 L and check CBC, CMP and lipase as well as give ondansetron IV and GI cocktail without p.o. Probable discharge home once workup is confirmed to be negative.. 20:57 ED course: All labs normal. Heart rate now at 64. We will see if discharge patient home sp3 to GI follow-up. Patient already has ondansetron and suppository presumably Phenergan at home.. 08/30 19:53 Order name: COVID-19 Ag + Flu A+B Ag; Complete Time: 20:48 sp3 08/30 19:53 Order name: Group A Streptococcus Rapid; Complete Time: 20:48 sp3 08/30 20:12 Order name: CBC with Diff; Complete Time: 20:48 sp3 08/30 20:12 Order name: CMP; Complete Time: 20:56 sp3 08/30 20:12 Order name: Lipase; Complete Time: 20:56 sp3 08/30 20:41 Order name: Throat Culture EDWV 08/30 20:12 Order name: IV Saline Lock; Complete Time: 20:31 sp3 08/30 20:12 Order name: Labs collected and sent; Complete Time: 20:31 sp3 Administered Medications: 20:30 Drug: GI Cocktail without - (Maalox PO 30 ml, Lidocaine Mucous Membrane 2 % 15 bm8 ml) PO once Route: PO; 21:05 Follow up: Response: No adverse reaction 8 20:31 Drug: Ondansetron IVP 4 mg IVP once; over 2 minutes Route: IVP; Site: right antecubital;bm8 21:05 Follow up: Response: No adverse reaction [facility] 20:31 Drug: NS 0.9% IV 1000 ml IV at 1 bolus Per protocol; to be given as a bolus over 60 bm8 minutes Route: IV; Rate: 1 bolus; Site: right antecubital; 21:05 Follow up: Response: No adverse reaction; IV Status: Completed infusion bm8 Disposition Summary: 08/30/25 20:58 Discharge Ordered Notes: Location: Home sp3 Condition: Stable sp3 Diagnosis - Gastritis sp3 Followup: sp3 - With: Leni Hammond MD - When: Upon discharge from the Emergency Department - Reason: Continuance of care Discharge Instructions: - Discharge Summary Sheet sp3 - Gastritis, Adult, [id number] sp3 Forms: - Medication Reconciliation Form sp3 - Antibiotic Education sp3 - Prescription Opioid Use sp3 - Patient Portal Instructions sp3 - Leadership Thank You Letter sp3 Prescriptions: - Protonix 40 mg Oral Tablet - take 1 tablet ORAL route once daily; 30 tablet; Refills: 0, Product Selection sp3 Permitted Signatures: Dispatcher [employer] Shanice Staley MD MD sp3 Tyson Ya RN RN bm8 KIANA MOLINA RN RN dd2 Corrections: (The following items were deleted from the chart) 19:54 19:54 COVID-19 Ag + Flu A+B Ag+I.LAB.BRZ ordered. EDMS EDMS :54 19:54 Group A Streptococcus Rapid Sc+I.LAB.BRZ ordered. EDMS EDMS 20: 20:13 CBC+H.LAB.BRZ ordered. EDMS EDMS 20: 20:13 COMPREHENSIVE METABOLIC PANEL+C.LAB.BRZ ordered. EDMS EDMS 20:13 20:13 LIPASE+C.LAB.BRZ ordered. EDMS EDMS
[2025-08-30 22:01] VITALS: TEMP 98.1
[2025-08-30 22:06] VITALS: BP 156/107; O2SAT 99
== END 2025-08-30 21:06 | disposition home or self-care (01) ==
LOC: ER 19:45
DX: K29.70 Gastritis, unspecified, without bleeding (principal); Z11.52 Encounter for screening for COVID-19
CPT/HCPCS: 36415; 80053; 83690; 85025; 87070; 87428; 96361; 96374; 99284; J2405; J7030